=== PATIENT | male | born 1985 | race Caucasian/White ===

== ENCOUNTER 2017-04-11 17:04 | Observation (INO) | payer OTHER, MEDICAID ==
[~2017-04-11] VITALS: Ht 170.2 cm; Wt 58.4 kg
[~2017-04-11 17:04] MED LIST: NOVOINJ SQ; NOVOLOGSS
[2017-04-11 17:13] VITALS: BP 107/69; PULSE 107; RESP 20; TEMP 98; O2SAT 97
[2017-04-11] MEDS ORDERED: SODIUM CHLOR 0.9% 1000 ML INJ 1,000 ML IV SCH ×2 (17:37→18:44)
[2017-04-11] MEDS ORDERED: SODIUM CHLORIDE 0.9% FLUSH 10 ML FLUSH IV FLUSH PRN ×2 (17:45→21:45)
[2017-04-11 18:24] LABS: BILIRUBIN, URINE NEG (NEG); BLOOD, URINE NEG (NEG); GLUCOSE,URINE 1000 OR GREATER mg/dL (NEG); KETONE, URINE 15 mg/dL (NEG); NITRITE,URINE NEG (NEG); URINE LEUKOCYTE ESTERASE NEG (NEG)
[2017-04-11 18:25] VITALS: BP 125/79; PULSE 106; RESP 20; O2SAT 97
[2017-04-11 18:32] LABS: URINE COLOR YELLOW (YELLW/STRAW)
[2017-04-11 18:33] LABS: CHLORIDE 95 MEQ/L (98-107); SODIUM (NA) 133 MEQ/L (136-145)
[2017-04-11 18:33] LABS: SQUAMOUS EPITHELIAL CELL URINE 0-5 /hpf (0-5)
[2017-04-11 18:36] LABS: CALCIUM 8.9 MG/DL (8.5-10.1)
[2017-04-11 18:37] LABS: ALBUMIN 2.9 GM/DL (3.4-5.0); BICARBONATE 29.8 MEQ/L (21.0-32.0)
[2017-04-11 18:42] LABS: ALT (GPT) 381 U/L (12-78); AST (GOT) 183 U/L (15-37); BLOOD UREA NITROGEN 25 MG/DL (7-18); CREATININE 0.99 MG/DL (0.60-1.30); GLOMERULAR FILTRATION RATE 87 ML/MIN (>89); GLUCOSE,RANDOM 441 MG/DL (74-106); TOTAL BILIRUBIN ADULT 0.2 MG/DL (0.2-1.0); TOTAL PROTEIN 5.9 GM/DL (6.4-8.2)
[2017-04-11 18:43] LABS: HEMATOCRIT 37.7 % (39.0-51.0); MEAN CELL VOLUME 93.6 FL (80.0-100.0); MEAN CORPUSCULAR HEMOGLOBIN 32.2 PG (27.0-34.0); MEAN CORPUSCULAR HGB CONC 34.4 % (32.0-36.0); MEAN PLATELET VOLUME 8.6 FL (7.0-11.0); PLATELET COUNT 262 TH/MM3 (150-450); RED BLOOD COUNT 4.03 MIL/MM3 (4.50-5.90); RED CELL DISTRIBUTION WIDTH 13.9 % (11.6-17.2); WHITE BLOOD COUNT 5.9 TH/MM3 (4.0-11.0)
[2017-04-11] MEDS ORDERED: INSU100V3 SQ (18:44)
[2017-04-11] MEDS ORDERED: HUMALOG SQ (18:44)
[2017-04-11 18:45] LABS: ALKALINE PHOSPHATASE 188 U/L (45-117)
[2017-04-11] MEDS ORDERED: IOHEXOL 350 MG/ML 10 ML VIAL (for RAD DIAG) IVCONTRAST ONE (18:57)
--- NOTE | 2017-04-11 19:06 | RADRPT ---
EXAM DATE/TIME: 04/11/2017 18:51 [place] COMPARISON: No previous studies available for comparison. INDICATIONS : Upper abdominal pain radiating to right lower quadrant and constipation x 5 days. IV CONTRAST: 85 cc Omnipaque 350 (iohexol) IV ORAL CONTRAST: No oral contrast ingested. RADIATION DOSE: 5.0 CTDIvol (mGy) MEDICAL HISTORY : Diabetes mellitus type 2. Lymphoma. SURGICAL HISTORY : None. ENCOUNTER: Initial ACUITY: 4 - 6 days PAIN SCALE: 8/10 LOCATION: Bilateral upper quadrant TECHNIQUE: Volumetric scanning of the abdomen and pelvis was performed. Using automated exposure control and ad justment of the mA and/or kV according to patient size, radiation dose was kept as low as reasonably achievable to obtain optimal diagnostic quality images. DICOM format image data is available electro nically for review and comparison. FINDINGS: LOWER LUNGS: The visualized lower lungs are clear. LIVER: Homogeneous density without lesion. There is some mild periportal edema. There is no dilation of the biliary tree. No calcified gallstones. SPLEEN: Normal size without lesion. PANCREAS: Within normal limits. KIDNEYS: Normal in size and shape. There is no mass, stone or hydronephrosis. ADRENAL GLANDS: Within normal limits. VASCULAR: There is no aortic aneurysm. BOWEL/MESENTERY: The stomach, small bowel, and colon demonstrate no acute abnormality. There is no free intraperitone al air or fluid. Moderate constipation present. ABDOMINAL WALL: Within normal limits. RETROPERITONEUM: There is no lymphadenopathy. BLADDER: No wall thickening or mass. REPRODUCTIVE: Within normal limits. INGUINAL: There is no lymphadenopathy or hernia. MUSCULOSKELETAL: Within normal limits for patient age. CONCLUSION: Moderate constipation. Mild periportal edema, nonspecific. Tulio Benítez MD on April 11, 2017 at 19:02 Board Certified Radiologist. This report was verified electronically.
[2017-04-11 19:22] LABS: LYMPHOCYTES 49 % (9-44); MONOCYTES 8 % (0-8); NEUTROPHIL # MANUAL DIFF 2.4 TH/MM3 (1.8-7.7); POLYS (SEG NEUTROPHILS) 41 % (16-70)
--- NOTE | 2017-04-11 19:29 | PD ---
HPI Chief Complaint: GI Complaint Time Seen by Provider: 17:28 Travel History International Travel<30 days: No Contact w/Intl Traveler<30days: No Traveled to known affect area: No History of Present Illness HPI This is a 32-year-old male with a history of insulin-dependent diabetes who presents for abdominal pain. He states that over the last week, he has been constipated. He usually has a bowel movement every day. He states that he has been using stool softeners and is having small but not firm bowel movements. He complains of crampy abdominal pain and associated distention. No nausea, vomiting. He has had normal oral intake and appetite. No fever, chills. Normal flatus. He states that his glucoses been slightly higher than usual. No urinary urgency, frequency, dysuria, hematuria. No cough or congestion. Symptoms are mild in severity. Onset gradual. No known alleviating or aggravating factors. Patient denies narcotic use or antihistamine use that may be contributing to constipation. PFSH Past Medical History Anxiety: Yes Cancer: Yes (LYMPHOMA) Cardiomyopathy: Yes ("from meds" per pt) Chemotherapy: Yes Diabetes: Yes Patient Takes Glucophage: No Radiation Therapy: Yes Influenza Vaccination: No Past Surgical History Other Surgery: Yes (INTERNAL CATH, CHEST AND TESTICLE BOPSY) Social History Alcohol Use: Yes (occ) Tobacco Use: Yes (1ppd) Substance Use: Yes (snorted cocaine few months ago. Denies IVDA) Allergies-Medications (Allergen,Severity, Reaction): Coded Allergies: No Known Allergies (Unverified Adverse Reaction, Unknown, 04/11/17) Reported Meds & Prescriptions Reported Meds & Active Scripts Active Reported Humalog Inj (Insulin Human Lispro) 1,000 Unit/10 Ml Vial 15 Units SQ ACHS Max dose at bedtime:( )units; sugars < 70,(0)units; sugars 150-199,(5)units; sugars 200-249,(10)units; sugars 250-299,(15)units; sugars 300-349,(20)units; sugars more than 349,(25)units. Humulin N Inj (Insulin Human NPH) 1,000 Unit/10 Ml Vial 15 Units SQ BID Review of Systems Except as stated in HPI: all other systems reviewed are Neg Physical Exam Narrative GENERAL: Alert, well nourished, well appearing patient resting on the bed in no acute distress. Vital Signs reviewed SKIN: Focused skin assessment warm/dry. HEAD: Atraumatic. Normocephalic. EYES: Pupils equal and round. No scleral icterus. No injection or drainage. ENT: No nasal bleeding or discharge. Mucous membranes pink and moist. NECK: Trachea midline. No JVD. Spontaneous, painless full range of motion with no meningismus CARDIOVASCULAR: Regular rate and rhythm. No murmur appreciated. Extremities warm and well perfused with bounding peripheral pulses RESPIRATORY: No accessory muscle use. Clear to auscultation. Breath sounds equal bilaterally. Breathing easily and speaking in full sentences GASTROINTESTINAL: Abdomen soft, mild diffusely tender, nondistended. Normal bowel sounds. No rigid, rebound, guarding MUSCULOSKELETAL: No obvious deformities. No clubbing. No cyanosis. No edema. Compartments are soft NEUROLOGICAL: Awake and alert. No obvious cranial nerve deficits. Motor grossly within normal limits. Normal speech. Sensation intact. Normal gait Data Data Last Documented VS Vital Signs Date Time Temp Pulse Resp B/P (MAP) Pulse Ox O2 Delivery O2 Flow Rate FiO2 04/11/17 18:39 Room Air 04/11/17 18:25 106 20 125/79 (94) 97 04/11/17 17:13 98.0 Orders Orders Complete Blood Count With Diff (04/11/17 17:37) Comprehensive Metabolic Panel (04/11/17 17:37) Lipase (04/11/17 17:37) Lactic Acid (04/11/17 17:37) Urinalysis - C+S If Indicated (04/11/17 17:37) Ct Abd/Pel W Iv Contrast(Rout) (04/11/17 17:37) Iv Access Insert/Monitor (04/11/17 17:37) Ecg Monitoring (04/11/17 17:37) Oximetry (04/11/17 17:37) NPO (04/11/17 17:37) Sodium Chlor 0.9% 1000 Ml Inj (Ns 1000 M (04/11/17 17:37) Sodium Chloride 0.9% Flush (Ns Flush) (04/11/17 17:45) Blood Culture (04/11/17 17:37) Drug Screen, Random Urine (04/11/17 17:37) Blood Gas Venous (Vbg) (04/11/17 17:37) Bedside Glucose JUAN.CSUGAR (04/11/17 17:37) Sodium Chlor 0.9% 1000 Ml Inj (Ns 1000 M (04/11/17 18:44) Iohexol 350 Inj (Omnipaque 350 Inj) (04/11/17 18:57) Labs Laboratory Tests Test 04/11/17 17:49 04/11/17 17:50 04/11/17 17:52 04/11/17 17:55 Blood Gas Puncture Site LT BRACHIAL Blood Gas Patient Temperature 98.6 Venous Blood pH 7.40 Venous Blood Partial Pressure CO2 46 mmHg Venous Blood Partial Pressure O2 53 mmHg Venous Blood HCO3 28 mmol/L Venous Blood Oxygen Saturation 85 % Venous Blood Oxygen Content 15.0 Vol % Venous Blood Base Excess 3.6 mmol/L Oxygen Delivery Device NONE Blood Gas Inspired Oxygen 21 % Urine Color YELLOW Urine Turbidity CLEAR Urine pH 6.0 Urine Specific [place] GREATER THAN 1.035 Urine Protein NEG mg/dL Urine Glucose (UA) 1000 OR GREATER mg/dL Urine Ketones 15 mg/dL Urine Occult Blood NEG Urine Nitrite NEG Urine Bilirubin NEG Urine Leukocyte Esterase NEG Urine Squamous Epithelial Cells 0-5 /hpf Microscopic Urinalysis Comment CULT NOT INDICATED Urine Opiates Screen NEG Urine Barbiturates Screen NEG Urine Amphetamines Screen NEG Urine Benzodiazepines Screen NEG Urine Cocaine Screen NEG Urine Cannabinoids Screen NEG Lactic Acid Level 5.3 mmol/L White Blood Count 5.9 TH/MM3 Red Blood Count 4.03 MIL/MM3 Hemoglobin 13.0 GM/DL Hematocrit 37.7 % Mean Corpuscular Volume 93.6 FL Mean Corpuscular Hemoglobin 32.2 PG Mean Corpuscular Hemoglobin Concent 34.4 % Red Cell Distribution Width 13.9 % Platelet Count 262 TH/MM3 Mean Platelet Volume 8.6 FL CBC Comment AUTO DIFF Blood Urea Nitrogen 25 MG/DL Creatinine 0.99 MG/DL Random Glucose 441 MG/DL Total Protein 5.9 GM/DL Albumin 2.9 GM/DL Calcium Level 8.9 MG/DL Alkaline Phosphatase 188 U/L Aspartate Amino Transf (AST/SGOT) 183 U/L Alanine Aminotransferase (ALT/SGPT) 381 U/L Total Bilirubin 0.2 MG/DL Sodium Level 133 MEQ/L Potassium Level 4.4 MEQ/L Chloride Level 95 MEQ/L Carbon Dioxide Level 29.8 MEQ/L Anion Gap 8 MEQ/L Estimat Glomerular Filtration Rate 87 ML/MIN Lipase 131 U/L MDM Medical Decision Making Medical Screen Exam Complete: Yes Emergency Medical Condition: Yes Medical Record Reviewed: Yes Interpretation(s) Laboratory Tests Test 04/11/17 17:49 04/11/17 17:50 04/11/17 17:52 04/11/17 17:55 Blood Gas Puncture Site LT BRACHIAL Blood Gas Patient Temperature 98.6 Venous Blood pH 7.40 Venous Blood Partial Pressure CO2 46 mmHg Venous Blood Partial Pressure O2 53 mmHg Venous Blood HCO3 28 mmol/L Venous Blood Oxygen Saturation 85 % Venous Blood Oxygen Content 15.0 Vol % Venous Blood Base Excess 3.6 mmol/L Oxygen Delivery Device NONE Blood Gas Inspired Oxygen 21 % Urine Color YELLOW Urine Turbidity CLEAR Urine pH 6.0 Urine Specific [place] GREATER THAN 1.035 Urine Protein NEG mg/dL Urine Glucose (UA) 1000 OR GREATER mg/dL Urine Ketones 15 mg/dL Urine Occult Blood NEG Urine Nitrite NEG Urine Bilirubin NEG Urine Leukocyte Esterase NEG Urine Squamous Epithelial Cells 0-5 /hpf Microscopic Urinalysis Comment CULT NOT INDICATED Urine Opiates Screen NEG Urine Barbiturates Screen NEG Urine Amphetamines Screen NEG Urine Benzodiazepines Screen NEG Urine Cocaine Screen NEG Urine Cannabinoids Screen NEG Lactic Acid Level 5.3 mmol/L White Blood Count 5.9 TH/MM3 Red Blood Count 4.03 MIL/MM3 Hemoglobin 13.0 GM/DL Hematocrit 37.7 % Mean Corpuscular Volume 93.6 FL Mean Corpuscular Hemoglobin 32.2 PG Mean Corpuscular Hemoglobin Concent 34.4 % Red Cell Distribution Width 13.9 % Platelet Count 262 TH/MM3 Mean Platelet Volume 8.6 FL CBC Comment AUTO DIFF Differential Total Cells Counted 100 Neutrophils % (Manual) 41 % Lymphocytes % 49 % Monocytes % 8 % Eosinophils % 2 % Neutrophils # (Manual) 2.4 TH/MM3 Differential Comment FINAL DIFF MANUAL Atypical Lymphocytes % Platelet Estimate NORMAL Platelet Morphology Comment NORMAL Red Cell Morphology Comment NORMAL Blood Urea Nitrogen 25 MG/DL Creatinine 0.99 MG/DL Random Glucose 441 MG/DL Total Protein 5.9 GM/DL Albumin 2.9 GM/DL Calcium Level 8.9 MG/DL Alkaline Phosphatase 188 U/L Aspartate Amino Transf (AST/SGOT) 183 U/L Alanine Aminotransferase (ALT/SGPT) 381 U/L Total Bilirubin 0.2 MG/DL Sodium Level 133 MEQ/L Potassium Level 4.4 MEQ/L Chloride Level 95 MEQ/L Carbon Dioxide Level 29.8 MEQ/L Anion Gap 8 MEQ/L Estimat Glomerular Filtration Rate 87 ML/MIN Lipase 131 U/L Last 24 hours Impressions Abdomen/Pelvis CT 04/11/17 [id number] Signed Impressions: Service Date/Time: March 18:51 - CONCLUSION: Moderate constipation. Mild periportal edema, nonspecific. Tulio Benítez MD Differential Diagnosis Constipation, dehydration, DKA, bowel obstruction less likely, gastroparesis, ileus, electrolyte abnormality Narrative Course IV access was established. Labs, imaging were performed. Patient's workup reveals mildly elevated LFTs, elevated lactate. His CT is remarkable for moderate constipation. Patient's glucose is elevated but he does not have acidosis on the VBG or elevated anion gap. Patient was given 2 L normal saline bolus and a dose of insulin. As of 7:20 PM: Patient's workup is still in progress. Care has been signed out to Dr. Walker. Further evaluation, care and disposition decisions will be per Dr. Walker. Giuliana Soto MD Apr 11, 2017 19:29
[2017-04-11] MEDS ORDERED: INSULIN HUMAN REGULAR 1,000 UNITS/10 ML VIAL SQ ONE (19:30)
[2017-04-11 20:03] VITALS: BP 118/77; PULSE 82; RESP 16; TEMP 97.6; O2SAT 96
--- NOTE | 2017-04-11 20:36 | PD ---
Physical Exam Date Seen by Provider: Apr 11, 2017 Time Seen by Provider: 20:35 Narrative accepted in transfer of care from Dr Soto GENERAL: Well-developed well-nourished male in no acute distress no respiratory distress SKIN: Warm and dry. GASTROINTESTINAL: Abdomen soft, mild reproducible epigastric tenderness to direct palpation without guarding or rebound, nondistended. Data Data Last Documented VS Vital Signs Date Time Temp Pulse Resp B/P (MAP) Pulse Ox O2 Delivery O2 Flow Rate FiO2 04/11/17 20:03 97.6 82 16 118/77 (91) 96 Room Air Orders Orders Complete Blood Count With Diff (04/11/17 17:37) Comprehensive Metabolic Panel (04/11/17 17:37) Lipase (04/11/17 17:37) Lactic Acid (04/11/17 17:37) Urinalysis - C+S If Indicated (04/11/17 17:37) Ct Abd/Pel W Iv Contrast(Rout) (04/11/17 17:37) Iv Access Insert/Monitor (04/11/17 17:37) Ecg Monitoring (04/11/17 17:37) Oximetry (04/11/17 17:37) NPO (04/11/17 17:37) Sodium Chlor 0.9% 1000 Ml Inj (Ns 1000 M (04/11/17 17:37) Sodium Chloride 0.9% Flush (Ns Flush) (04/11/17 17:45) Blood Culture (04/11/17 17:37) Drug Screen, Random Urine (04/11/17 17:37) Blood Gas Venous (Vbg) (04/11/17 17:37) Bedside Glucose JUAN.CSUGAR (04/11/17 17:37) Sodium Chlor 0.9% 1000 Ml Inj (Ns 1000 M (04/11/17 18:44) Iohexol 350 Inj (Omnipaque 350 Inj) (04/11/17 18:57) Insulin Human Regular Inj (Novolin R Inj (04/11/17 19:30) Lactic Acid (04/11/17 20:11) Blood Glucose (04/11/17 20:35) Labs Laboratory Tests Test 04/11/17 17:49 04/11/17 17:50 04/11/17 17:52 04/11/17 17:55 Blood Gas Puncture Site LT BRACHIAL Blood Gas Patient Temperature 98.6 Venous Blood pH 7.40 Venous Blood Partial Pressure CO2 46 mmHg Venous Blood Partial Pressure O2 53 mmHg Venous Blood HCO3 28 mmol/L Venous Blood Oxygen Saturation 85 % Venous Blood Oxygen Content 15.0 Vol % Venous Blood Base Excess 3.6 mmol/L Oxygen Delivery Device NONE Blood Gas Inspired Oxygen 21 % Urine Color YELLOW Urine Turbidity CLEAR Urine pH 6.0 Urine Specific [place] GREATER THAN 1.035 Urine Protein NEG mg/dL Urine Glucose (UA) 1000 OR GREATER mg/dL Urine Ketones 15 mg/dL Urine Occult Blood NEG Urine Nitrite NEG Urine Bilirubin NEG Urine Leukocyte Esterase NEG Urine Squamous Epithelial Cells 0-5 /hpf Microscopic Urinalysis Comment CULT NOT INDICATED Urine Opiates Screen NEG Urine Barbiturates Screen NEG Urine Amphetamines Screen NEG Urine Benzodiazepines Screen NEG Urine Cocaine Screen NEG Urine Cannabinoids Screen NEG Lactic Acid Level 5.3 mmol/L White Blood Count 5.9 TH/MM3 Red Blood Count 4.03 MIL/MM3 Hemoglobin 13.0 GM/DL Hematocrit 37.7 % Mean Corpuscular Volume 93.6 FL Mean Corpuscular Hemoglobin 32.2 PG Mean Corpuscular Hemoglobin Concent 34.4 % Red Cell Distribution Width 13.9 % Platelet Count 262 TH/MM3 Mean Platelet Volume 8.6 FL CBC Comment AUTO DIFF Differential Total Cells Counted 100 Neutrophils % (Manual) 41 % Lymphocytes % 49 % Monocytes % 8 % Eosinophils % 2 % Neutrophils # (Manual) 2.4 TH/MM3 Differential Comment FINAL DIFF MANUAL Atypical Lymphocytes % Platelet Estimate NORMAL Platelet Morphology Comment NORMAL Red Cell Morphology Comment NORMAL Blood Urea Nitrogen 25 MG/DL Creatinine 0.99 MG/DL Random Glucose 441 MG/DL Total Protein 5.9 GM/DL Albumin 2.9 GM/DL Calcium Level 8.9 MG/DL Alkaline Phosphatase 188 U/L Aspartate Amino Transf (AST/SGOT) 183 U/L Alanine Aminotransferase (ALT/SGPT) 381 U/L Total Bilirubin 0.2 MG/DL Sodium Level 133 MEQ/L Potassium Level 4.4 MEQ/L Chloride Level 95 MEQ/L Carbon Dioxide Level 29.8 MEQ/L Anion Gap 8 MEQ/L Estimat Glomerular Filtration Rate 87 ML/MIN Lipase 131 U/L Test 04/11/17 20:18 MDM Medical Record Reviewed: Yes Supervised Visit with MARIELA: No Differential Diagnosis accepted in transfer of care from Dr Soto; please refer to her dictation Narrative Course accepted in transfer of care from Dr Soto; follow up pending labs; response to meds and disposition At 8:50 PM post insulin glucose 259 Aide Walker MD Apr 11, 2017 20:36
[2017-04-11] MEDS ORDERED: NALOXONE HCL 0.4 MG/ML AMP IV PUSH PRN (21:45)
[2017-04-11] MEDS ORDERED: DEXTROSE 50% IN WATER 50 ML VIAL(D50) IV PUSH PRN (21:45)
[2017-04-11] MEDS ORDERED: GLUCAGON 1 MG/ML VIAL OTHER PRN (21:45)
[2017-04-11] MEDS ORDERED: SODIUM CHLOR 0.9% 1000 ML INJ 1,000 ML IV ONE (21:45)
[2017-04-11] MEDS ORDERED: ONDANSETRON HCL 4 MG/2 ML VIAL IVP PRN (21:45)
[2017-04-11 23:45] VITALS: BP 104/69; PULSE 82; RESP 20; TEMP 97.9; O2SAT 94
[2017-04-12] MEDS: SODIUM CHLOR 0.9% 1000 ML INJ 1,000 ML IV SCH ×2 (00:06→07:40)
[2017-04-12 01:30] VITALS: PULSE 83
[2017-04-12 04:00] VITALS: BP 108/74; PULSE 83; RESP 20; TEMP 97.8; O2SAT 97
[2017-04-12 06:32] LABS: AUTOMATED NEUTROPHIL # 5.2 TH/MM3 (1.8-7.7); BASOPHIL # 0.1 TH/MM3 (0-0.2); BASOPHIL % 0.7 % (0.0-2.0); EOSINOPHIL # 0.2 TH/MM3 (0-0.4); EOSINOPHIL % 2.5 % (0.0-4.0); HEMATOCRIT 38.6 % (39.0-51.0); HEMOGLOBIN 12.6 GM/DL (13.0-17.0); LYMPH % 26.8 % (9.0-44.0); LYMPHOCYTE # 2.2 TH/MM3 (1.0-4.8); MEAN CELL VOLUME 94.7 FL (80.0-100.0); MEAN CORPUSCULAR HGB CONC 32.7 % (32.0-36.0); MEAN PLATELET VOLUME 8.5 FL (7.0-11.0); MONOCYTE # 0.6 TH/MM3 (0-0.9); PLATELET COUNT 226 TH/MM3 (150-450); RED BLOOD COUNT 4.07 MIL/MM3 (4.50-5.90); RED CELL DISTRIBUTION WIDTH 13.1 % (11.6-17.2); WHITE BLOOD COUNT 8.3 TH/MM3 (4.0-11.0)
[2017-04-12 07:05] LABS: BICARBONATE 26.6 MEQ/L (21.0-32.0); CREATININE 0.57 MG/DL (0.60-1.30)
[2017-04-12 08:00] VITALS: BP 116/87; PULSE 73; PULSE 80; RESP 16; TEMP 96.4; O2SAT 97
[2017-04-12] MEDS: INSULIN ASPART SUPPLEMENTAL SCALE SQ SCH ×2 (08:00→12:00)
[2017-04-12] MEDS ORDERED: SODIUM CHLORIDE 0.9% FLUSH 10 ML FLUSH IV FLUSH SCH (09:00)
[2017-04-12] MEDS ORDERED: INSULIN HUMAN NPH 1,000 UNITS/10 ML VIAL SQ SCH (10:30)
[2017-04-12] MEDS ORDERED: LACTULOSE SYRUP 20 GM/30 ML CUP PO ONE (11:15)
[2017-04-12] MEDS ORDERED: BISACODYL EC 5 MG TABEC PO ONE (11:15)
[2017-04-12 12:00] VITALS: BP 105/75; PULSE 88; RESP 14; TEMP 96.6; O2SAT 98
[2017-04-12] MEDS ORDERED: INSULIN ASPART 1,000 UNITS/10 ML VIAL SQ SCH (12:00)
[2017-04-12] MEDS ORDERED: INSU100V3 SQ (12:36)
[2017-04-12] MEDS ORDERED: HUMALOG SQ (12:37)
[2017-04-12] MEDS ORDERED: GLUCTES12 (12:37)
[2017-04-12] MEDS ORDERED: COLA100C5 PO (12:37)
[2017-04-12] MEDS ORDERED: INSU1MIS15 (12:37)
[2017-04-12] MEDS ORDERED: LANCETS1 MI1 (12:37)
--- NOTE | 2017-04-12 12:37 | HHI.DCPOC ---
Discharge Care Plan Diagnosis: (1) DM type 1 (diabetes mellitus, type 1) Goals to Promote Your Health * To prevent worsening of your condition and complications * To maintain your health at the optimal level Directions to Meet Your Goals Take your medications as prescribed Follow your dietary instruction Follow activity as directed Keep your appointments as scheduled Take your immunizations and boosters as scheduled If your symptoms worsen call your PCP, if no PCP go to Urgent Care Center or Emergency Room Smoking is Dangerous to Your Health. Avoid second hand smoke Call the 24-hour hour crisis hotline for domestic abuse at Fatuma Nielsen MD Apr 12, 2017 12:37
--- NOTE | 2017-04-12 12:42 | HHI.HP ---
[facility] Service [facility] Primary Care Physician [facility] Admission Diagnosis poorly controlled DM; abdominal pain; elevated lactate Diagnoses: Chief Complaint: Constipation Travel History International Travel<30 Days: No Contact w/Intl Traveler <30 Da: No Traveled to Known Affected Are: No History of Present Illness This patient is a 32-year-old gentleman with type 1 diabetes for the last 5 years. He has had difficulty controlling them due to poor adherence. He says he is very busy and ran out of his medications and did not follow-up as he was prescribed. He ran out of the syringes also. He comes to the emergency room complaining of increased abdominal discomfort and constipation. Images were done which did show constipation. Patient also had elevated lactic acid which probably is related to his uncontrolled blood sugar. His blood sugars are in the 400s. Patient also had an elevated beta hydroxy. Patient was monitored overnight with IV hydration and bowel regimen. He is advised to discontinue synthetic sugars and to improve his dietary and medication follow-up. He expressed understanding. Review of Systems Constitutional: DENIES: Diaphoretic episodes, Fatigue, Fever, Weight gain, Weight loss, Chills, Dizziness, Change in appetite, Night Sweats Endocrine: DENIES: Heat/cold intolerance, Polydipsia, Polyuria, Polyphagia Eyes: DENIES: Blurred vision, Diplopia, Eye inflammation, Eye pain, Vision loss , Photosensitivity, Double Vision Ears, nose, mouth, throat: DENIES: Tinnitus, Hearing loss, Vertigo, Nasal discharge, Oral lesions, Throat pain, Hoarseness, Ear Pain, Running Nose, Epistaxis, Sinus Pain, Toothache, Odynophagia Respiratory: DENIES: Apneas, Cough, Snoring, Wheezing, Hemoptysis, Sputum production, Shortness of breath Cardiovascular: DENIES: Chest pain, Palpitations, Syncope, Dyspnea on Exertion , PND, Lower Extremity Edema, Orthopnea, Claudication Gastrointestinal: COMPLAINS OF: Constipation, DENIES: Abdominal pain, Black stools, Bloody stools, Diarrhea, Nausea, Vomiting, Difficulty Swallowing, Anorexia Genitourinary: DENIES: Sexual dysfunction, Urinary frequency, Urinary incontinence, Urgency, Hematuria, Dysuria, Nocturia, Penile Discharge, Testicular Pain, Testicular Swelling Integumentary: DENIES: Abnormal pigmentation, Nail changes, Pruritus, Rash Hematologic/lymphatic: DENIES: Bruising, Lymphadenopathy Immunologic/allergic: DENIES: Eczema, Urticaria Neurologic: DENIES: Abnormal gait, Headache, Localized weakness, Paresthesias, Seizures, Speech Problems, Tremor, Poor Balance Psychiatric: DENIES: Anxiety, Confusion, Mood changes, Depression, Hallucinations, Agitation, Suicidal Ideation, Homicidal Ideation, Delusions Past Family Social History Past Medical History Diabetes mellitus type 1 for 5 years History of lymphoma History of Adriamycin related cardiomyopathy Past Surgical History Testicular biopsy, Reported Medications Reviewed in the EMR, ran out of insulin and syringes Allergies: Coded Allergies: No Known Allergies (Unverified Allergy, Unknown, 04/11/17) Active Ordered Medications reviewed in the EMR Family History his aunt has diabetes Social History Occasional alcohol, goes to school and works full-time Physical Exam Vital Signs Vital Signs Date Time Temp Pulse Resp B/P (MAP) Pulse Ox O2 Delivery O2 Flow Rate FiO2 04/12/17 08:00 80 04/12/17 08:00 96.4 73 16 116/87 (97) 97 04/12/17 04:00 97.8 83 20 108/74 (85) 97 04/12/17 01:30 83 04/11/17 23:45 97.9 82 20 104/69 (81) 94 04/11/17 23:43 04/11/17 20:03 97.6 82 16 118/77 (91) 96 Room Air 04/11/17 18:39 Room Air 04/11/17 18:25 106 20 125/79 (94) 97 Room Air 04/11/17 17:13 98.0 107 20 107/69 (82) 97 Physical Exam GENERAL: This is a well-nourished, well-developed patient, in no apparent distress. SKIN: No rashes, ecchymoses or lesions. Cool and dry. HEAD: Atraumatic. Normocephalic. No temporal or scalp tenderness. EYES: Pupils equal round and reactive. Extraocular motions intact. No scleral icterus. No injection or drainage. ENT: Nose without bleeding, purulent drainage or septal hematoma. Throat without erythema, tonsillar hypertrophy or exudate. Uvula midline. Airway patent. NECK: Trachea midline. No JVD or lymphadenopathy. Supple, nontender, no meningeal signs. CARDIOVASCULAR: Regular rate and rhythm without murmurs, gallops, or rubs. RESPIRATORY: Clear to auscultation. Breath sounds equal bilaterally. No wheezes , rales, or rhonchi. GASTROINTESTINAL: Abdomen soft, non-tender, nondistended. No hepato-splenomegaly , or palpable masses. No guarding. MUSCULOSKELETAL: Extremities without clubbing, cyanosis, or edema. No joint tenderness, effusion, or edema noted. No calf tenderness. Negative Homans sign bilaterally. NEUROLOGICAL: Awake and alert. Cranial nerves II through XII intact. Motor and sensory grossly within normal limits. Five out of 5 muscle strength in all muscle groups. Normal speech. Laboratory Laboratory Tests Test 04/11/17 17:49 04/11/17 17:50 04/11/17 17:52 04/11/17 17:55 Blood Gas Puncture Site LT BRACHIAL Blood Gas Patient Temperature 98.6 Venous Blood pH 7.40 Venous Blood Partial Pressure CO2 46 Venous Blood Partial Pressure O2 53 Venous Blood HCO3 28 Venous Blood Oxygen Saturation 85 Venous Blood Oxygen Content 15.0 Venous Blood Base Excess 3.6 Oxygen Delivery Device NONE Blood Gas Inspired Oxygen 21 Urine Color YELLOW Urine Turbidity CLEAR Urine pH 6.0 Urine Specific [place] GREATER THAN 1.035 Urine Protein NEG Urine Glucose (UA) 1000 OR GREATER Urine Ketones 15 Urine Occult Blood NEG Urine Nitrite NEG Urine Bilirubin NEG Urine Leukocyte Esterase NEG Urine Squamous Epithelial Cells 0-5 Microscopic Urinalysis Comment CULT NOT INDICATED Urine Opiates Screen NEG Urine Barbiturates Screen NEG Urine Amphetamines Screen NEG Urine Benzodiazepines Screen NEG Urine Cocaine Screen NEG Urine Cannabinoids Screen NEG Lactic Acid Level 5.3 White Blood Count 5.9 Red Blood Count 4.03 Hemoglobin 13.0 Hematocrit 37.7 Mean Corpuscular Volume 93.6 Mean Corpuscular Hemoglobin 32.2 Mean Corpuscular Hemoglobin Concent 34.4 Red Cell Distribution Width 13.9 Platelet Count 262 Mean Platelet Volume 8.6 CBC Comment AUTO DIFF Differential Total Cells Counted 100 Neutrophils % (Manual) 41 Lymphocytes % 49 Monocytes % 8 Eosinophils % 2 Neutrophils # (Manual) 2.4 Differential Comment FINAL DIFF MANUAL Atypical Lymphocytes Platelet Estimate NORMAL Platelet Morphology Comment NORMAL Red Cell Morphology Comment NORMAL Blood Urea Nitrogen 25 Creatinine 0.99 Random Glucose 441 Total Protein 5.9 Albumin 2.9 Calcium Level 8.9 Alkaline Phosphatase 188 Aspartate Amino Transf (AST/SGOT) 183 Alanine Aminotransferase (ALT/SGPT) 381 Total Bilirubin 0.2 Sodium Level 133 Potassium Level 4.4 Chloride Level 95 Carbon Dioxide Level 29.8 Anion Gap 8 Estimat Glomerular Filtration Rate 87 Lipase 131 Test 04/11/17 20:18 04/12/17 05:30 04/12/17 08:15 Lactic Acid Level 4.9 1.7 White Blood Count 8.3 Red Blood Count 4.07 Hemoglobin 12.6 Hematocrit 38.6 Mean Corpuscular Volume 94.7 Mean Corpuscular Hemoglobin 31.0 Mean Corpuscular Hemoglobin Concent 32.7 Red Cell Distribution Width 13.1 Platelet Count 226 Mean Platelet Volume 8.5 Neutrophils (%) (Auto) 63.0 Lymphocytes (%) (Auto) 26.8 Monocytes (%) (Auto) 7.0 Eosinophils (%) (Auto) 2.5 Basophils (%) (Auto) 0.7 Neutrophils # (Auto) 5.2 Lymphocytes # (Auto) 2.2 Monocytes # (Auto) 0.6 Eosinophils # (Auto) 0.2 Basophils # (Auto) 0.1 CBC Comment DIFF FINAL Differential Comment Blood Urea Nitrogen 18 Creatinine 0.57 Random Glucose 429 Calcium Level 8.0 Sodium Level 135 Potassium Level 4.7 Chloride Level 102 Carbon Dioxide Level 26.6 Anion Gap 6 Estimat Glomerular Filtration Rate 164 B-Hydroxybutyrate 1.60 Date/Time Source Procedure Growth Status 04/11/17 17:55 Blood Peripheral Aerobic Blood Culture - Preliminary NO GROWTH IN 1 DAY Resulted 04/11/17 17:55 Blood Peripheral Anaerobic Blood Culture - Preliminary NO GROWTH IN 1 DAY Resulted Result Diagram: 04/12/17 0530 04/12/17 0530 Imaging Last Impressions Abdomen/Pelvis CT 04/11/17 3597 Signed Impressions: Service Date/Time: March 18:51 - CONCLUSION: Moderate constipation. Mild periportal edema, nonspecific. Tulio Benítez MD Septic Shock Reassessment Septic shock perfusion: reassessment completed Caprini VTE Risk Assessment Caprini VTE Risk Assessment: No/Low Risk (score <= 1) Caprini Risk Assessment Model Point Value = 1 Point Value = 2 Point Value = 3 Point Value = 5 Age 41-60 Minor surgery BMI > 25 kg/m2 Swollen legs Varicose veins or History of unexplained or recurrent spontaneous Oral contraceptives or hormone replacement Sepsis (< 1 month) Serious lung disease, including pneumonia (< 1 month) Abnormal pulmonary function Acute myocardial infarction Congestive heart failure (< 1 month) History of inflammatory bowel disease Medical patient at bed rest Age 61-74 Arthroscopic surgery Major open surgery (> 45 min) Laparoscopic surgery (> 45 min) Malignancy Confined to bed (> 72 hours) Immobilizing plaster cast Central venous access Age >= 75 History of VTE Family history of VTE Factor V Leiden Prothrombin [id number] Lupus anticoagulant Anticardiolipin antibodies Elevated serum homocysteine Heparin-induced thrombocytopenia Other congenital or acquired thrombophilia Stroke (< 1 month) Elective arthroplasty Hip, pelvis, or leg fracture Acute spinal cord injury (< 1 month) Prophylaxis Regimen Total Risk Factor Score Risk Level Prophylaxis Regimen 0-1 Low Early ambulation 2 Moderate Order ONE of the following: *Sequential Compression Device (SCD) *Heparin 5000 units SQ BID 3-4 Higher Order ONE of the following medications: *Heparin 5000 units SQ TID *Enoxaparin/Lovenox 40 mg SQ daily (WT < 150 kg, CrCl > 30 mL/min) *Enoxaparin/Lovenox 30 mg SQ daily (WT < 150 kg, CrCl > 10-29 mL/min) *Enoxaparin/Lovenox 30 mg SQ BID (WT < 150 kg, CrCl > 30 mL/min) AND/OR *Sequential Compression Device (SCD) 5 or more Highest Order ONE of the following medications: *Heparin 5000 units SQ TID (Preferred with Epidurals) *Enoxaparin/Lovenox 40 mg SQ daily (WT < 150 kg, CrCl > 30 mL/min) *Enoxaparin/Lovenox 30 mg SQ daily (WT < 150 kg, CrCl > 10-29 mL/min) *Enoxaparin/Lovenox 30 mg SQ BID (WT < 150 kg, CrCl > 30 mL/min) AND *Sequential Compression Device (SCD) Assessment and Plan Problem List: (1) DM type 1 (diabetes mellitus, type 1) ICD Code: E10.9 - Type 1 diabetes mellitus without complications Plan: His diabetes uncontrolled to report adherence. Patient went out of his medications and had not been taking care of himself as he should. Patient's sugars improved somewhat. Patient education provided by medical attending at bedside. Occasions are refilled. Patient will be discharged home (2) Constipation ICD Code: K59.00 - Constipation, unspecified Plan: Fluid intake encouraged, patient to take Colace as prescribed Assessment and Plan Discharge home Activity unrestricted Diet diabetic Discussed Condition With Patient Fatuma Nielsen MD Apr 12, 2017 12:42
[2017-04-12 16:56] LABS: HEMOGLOBIN A1C 12.3 % (4.3-6.0)
== END 2017-04-12 14:00 | disposition home or self-care (01) ==
LOC: PHED 17:04 → PHEDA 21:42 → PH3A 23:44
PROVIDERS: ADMIT Hospitalist; ATTEND Hospitalist
DX: E10.65 Type 1 diabetes mellitus with hyperglycemia (principal); K59.00 Constipation, unspecified; R79.89 Other specified abnormal findings of blood chemistry; I42.9 Cardiomyopathy, unspecified; T45.1X5A Adverse effect of antineoplastic and immunosuppressive drugs, initial encounter; F41.9 Anxiety disorder, unspecified; F17.200 Nicotine dependence, unspecified, uncomplicated; Z85.72 Personal history of non-Hodgkin lymphomas
CPT/HCPCS: 74177; 80048; 80053; 80307; 81001; 82010; 82805; 82948; 83036; 83605; 83690; 85007; 85025; 85027; 87040; 96360; 96361; 96372; 99285; G0378; J1815; J7030; Q9967

== ENCOUNTER 2017-09-16 08:12 | Inpatient (IN) ==
[2017-09-16] MEDS ORDERED: Sod Chloride 0.9% Inj 1,000 ML IV.SIG ONE ×2 (08:42→10:43)
[2017-09-16 09:03] LABS: VBG Base Excess -13.2 mmol/L (-2-2); VBG PCO2 30 mmHG (44-48); VBG PH 7.25 (7.360-7.400); VBG PO2 58 mmHG (35-40)
[2017-09-16 09:22] LABS: Baso # (Auto) 0.1 th/mm3 (0.0-0.2); Eos # (Auto) 0.1 th/mm3 (0.0-0.4); Eos % (Auto) 1.1 % (0.0-4.0); Hematocrit 46.4 % (39.0-51.0); Hemoglobin 15.8 gm/dL (13.0-17.0); Lymph # (Auto) 1.6 th/mm3 (1.0-4.8); Lymph % (Auto) 16.7 % (9.0-44.0); Mean Corpuscular HGB Conc 34.1 % (32.0-36.0); Mean Corpuscular Hemoglobin 33.8 pg (27.0-34.0); Mean Corpuscular Volume 99.1 fL (80.0-100.0); Mean Platelet Volume 9.2 fL (7.0-11.0); Mono # (Auto) 0.5 th/mm3 (0.0-0.9); Mono % (Auto) 5.6 % (0.0-8.0); Neut # (Auto) 7.3 th/mm3 (1.8-7.7); Neut % (Auto) 75.6 % (16.0-70.0); Platelet Count 248 th/mm3 (150-450); Red Blood Count 4.68 mil/mm3 (4.50-5.90); Red Cell Distribution Width 12.8 % (11.6-17.2); White Blood Count 9.7 th/mm3 (4.0-11.0)
[2017-09-16 09:49] LABS: Calcium 8.9 mg/dL (8.5-10.1); Carbon Dioxide 13.4 meq/L (21.0-32.0)
[2017-09-16 09:52] LABS: Potassium 4.5 meq/L (3.5-5.1)
[2017-09-16 09:59] LABS: Bilirubin,Urine Negative (Negative); Clarity,Urine Clear (Clear); Color,Urine Straw (Yellw/Straw); Glucose,Urine (UA) 500 or Greater mg/dL (Negative); Leukocyte Esterase,Urine Negative (Negative); Mucus,Urine Few /lpf (Occasional); Nitrite,Urine Negative (Negative); Specific Gravity,Urine 1.027 (1.002-1.035)
[2017-09-16] MEDS ORDERED: Insulin Regular (For Infusion) 100 UNIT in Sodium Chlor 0.9% Inj 99 ML IV.CONT PRN (11:26)
[2017-09-16] MEDS ORDERED: Dextrose 50% in Water 50 ML Vial IV.PUSH PRN (11:36)
[2017-09-16] MEDS ORDERED: Sod Chloride 0.9% Inj 1,000 ML IV.CONT SCH (11:45)
--- NOTE | 2017-09-16 13:42 | P.HPIM ---
History of Present Illness Service: [facility] Primary Care Physician: [facility] Chief Complaint: malaise, concern for DKA History of Present Illness: Mr. Fitch is a 28 yo M with PMH of T1DM and cardiomyopathy who presented to [facility] ED with symptoms of malaise. Patient felt nauseous, dizzy, having feelings of palpitations, and lethargic this morning so sought to seek care. Patient states that it felt similar to prior episodes of DKA but worse. Patient feels that he has been urinating frequently and has been more tired lately but otherwise does not know of any recent illnesses. Patient does not report recent fevers, cough, shortness of breath, or other concerns. Patient states that he takes Lantus insulin 20U in the mornings and sliding Novolog insulin (1 Unit per 15 gm carbs) with meals. Patient has not been checking his glucose levels often. He has been compliant in taking Lantus daily but misses Novolog doses. Patient states that he thinks his EF is 35-40% but has not had recent follow-up for his Cardiomyopathy with Cardiology. He reports chronic smoking, prior occasional cocaine abuse but not recently. Meds- ASA 81mg, unspecified cholesterol med, Lantus, Novolog PMH- T1DM, Cardiomyopathy (unsure etiology; exposure from vs chemo as kid for NHL) PSH- chest port from cancer SH- lives w/ cousin. about to be homeless.Tobacco- ~2ppd. Alcohol- binge on weekends. Occasional cocaine- considering rehab FH-none reported Interval: On arrival in ED, patient afebrile with stable VS. Labs on admission demonstrated glucose 354, anion gap of 20, and bicarb of 13.4. K 4.5. Na 134. UA with 80+ ketones. CBC wnl; presentation not suspcious for infectious etiology. Patient admitted for DKA and given IV insulin and IVF. Patient admitted to [facility] service for continued treatment. - Diagnosis (1) Acute dehydration (2) Cardiomyopathy (3) DKA (diabetic ketoacidoses) (4) Diabetes Inpatient Certification: I certify that the inpatient services were ordered in accordance with Medicare regulations governing the order. This includes certification that hospital inpatient services are reasonable and necessary and in the case of services not specified as inpatient-only under 42 CFR 419.22(n), that they are appropriately provided as inpatient services in accordance to with the 2-midnight benchmark under 43 CFR 412.3(e) Estimated Total Length of Stay (Days): 3 Plans for Post Hospital Care: Home Review of Systems Constitutional: Reports lack of energy, Denies chills Eyes: Denies blind spots, Denies itchy eyes Cardiovascular: Denies chest pain, Denies excessive sweating, Denies irregular heart rhythm Respiratory: Denies chest congestion, Denies cough Gastrointestinal: Denies abdominal pain, Denies bloating Musculoskeletal: Denies abnormal walking, Denies back pain Skin/Breast: Denies rash, Denies other Psychiatric: Denies anxiety, Denies panic attacks PMFSH - History History Provided By: Patient - Medical History Medical History: Medical History (Last Updated 09/16/17 @ 20:19 by Sánchez Mortensen MD) Cardiomyopathy (Acute) Diabetes (Acute) Non-Hodgkin lymphoma in remission Port-A-Cath in place Tobacco abuse - Tobacco History Second Hand Smoke Exposure: Yes Tobacco Use In Past 30 Days: Yes Smoking Status: Current every day smoker Tobacco Type: Cigarettes - Alcohol History How Often Do You Have a Drink Containing Alcohol: 4 or more times a week - Substance Use History Substance History: Active Abuse - Substance Use Type Crack/Cocaine Status: Active Route Used: Inhalation Reason for Use: Feels Good - Travel History Recent Travel in the [place] Within the Last 8 Weeks: No Recent Travel Out of the Country Within the Last 8 Weeks: No - Immunization History Tetanus Immunization: <5 Years Medications and Allergies Active Medications: Active Medications Dextrose (D50w Vial) 50 ml IV.PUSH UNSCH PRN PRN Reason: PER HYPOGLYCEMIA PROTOCOL Insulin Human Regular 100 unit (/ Sodium Chloride) 100 mls @ 6 mls/hr IV.CONT TITRATE PRN; Protocol PRN Reason: See protocol Last Admin: 09/16/17 12:43 Dose: 6 units/hr, 6 mls/hr Sodium Chloride (Ns Inj) 1,000 mls @ 200 mls/hr IV.CONT .Q5H SHANNAN Sodium Chloride (Ns Flush) 2 ml IV.FLUSH PRN PRN PRN Reason: FLUSH AFTER USING IV ACCESS Allergies Allergy/AdvReac Type Severity Reaction Status Date / Time No Known Allergies Allergy Unknown Uncoded 04/11/17 21:43 Home Medications Medication Instructions Recorded Confirmed Type insulin aspart U-100 [Novolog 1 sliding scale dose SUB-Q UD 07/23/18 07/23/18 History U-100 Insulin aspart] insulin glargine [Lantus U-100 20 unit SUB-Q DAILY 09/16/17 09/16/17 History Insulin] Exam Vital signs: Vital Signs 09/16/17 08:19 09/16/17 10:49 09/16/17 12:47 Temperature 97.8 F Pulse Rate 90 82 79 Respiratory Rate 18 17 16 Blood Pressure 103/55 L 111/64 93/63 L Pulse Oximetry 98 96 100 Intake & Output 09/15/17 09/16/17 09/16/17 18:59 06:59 18:59 Weight 56.699 kg Narrative: General: No acute distress Skin: No visible lesions Neck: No appreciated lymphadenopathy or thyromegaly HEENT: Head atraumatic. Eyes- pupils reactive, symmetrical. EOM I. Nose- no drainage. Mouth- normal mucus membranes CV- Regular rate and rhythm; no murmurs Resp: CTAB; normal rate Abd: Soft, nontender, normal BS Ext: Grossly normal ROM and motor function Neuro: Awake, alert. Normal CN. Normal peripheral motor and sensory function Results - Labs CBC & Chem 7: 09/16/17 09:00 09/16/17 14:40 Labs: Short CBC 09/16/17 Range/Units 09:00 WBC 9.7 (4.0-11.0) th/mm3 Hgb 15.8 (13.0-17.0) gm/dL Hct 46.4 (39.0-51.0) % Plt Count 248 (150-450) th/mm3 BMP 09/16/17 09:00 Sodium 134 L Potassium 4.5 Chloride 101 Carbon Dioxide 13.4 L BUN 18 Creatinine 1.23 Calcium 8.9 Urine 09/16/17 Range/Units 09:05 Urine Color Straw (Yellw/Straw) Urine Clarity Clear (Clear) Urine pH 5.0 (5.0-8.5) Ur Specific [place] 1.027 (1.002-1.035) Urine Protein Negative (Neg-Trace) mg/dL Urine Glucose (UA) 500 or greater (Negative) mg/dL Caprini VTE Risk Assessment Caprini VTE Risk Assessment: No/Low Risk (score <= 1) Caprini Risk Assessment Model: Point Value = 1 Point Value = 2 Point Value = 3 Point Value = 5 Age 41-60 Minor surgery BMI > 25 kg/m2 Swollen legs Varicose veins or History of unexplained or recurrent spontaneous Oral contraceptives or hormone replacement Sepsis (< 1 month) Serious lung disease, including pneumonia (< 1 month) Abnormal pulmonary function Acute myocardial infarction Congestive heart failure (< 1 month) History of inflammatory bowel disease Medical patient at bed rest Age 61-74 Arthroscopic surgery Major open surgery (> 45 min) Laparoscopic surgery (> 45 min) Malignancy Confined to bed (> 72 hours) Immobilizing plaster cast Central venous access Age >= 75 History of VTE Family history of VTE Factor V Leiden Prothrombin [id number] Lupus anticoagulant Anticardiolipin antibodies Elevated serum homocysteine Heparin-induced thrombocytopenia Other congenital or acquired thrombophilia Stroke (< 1 month) Elective arthroplasty Hip, pelvis, or leg fracture Acute spinal cord injury (< 1 month) Prophylaxis Regimen: Total Risk Factor Score Risk Level Prophylaxis Regimen 0-1 Low Early ambulation 2 Moderate Order ONE of the following: *Sequential Compression Device (SCD) *Heparin 5000 units SQ BID 3-4 Higher Order ONE of the following medications: *Heparin 5000 units SQ TID *Enoxaparin/Lovenox 40 mg SQ daily (WT < 150 kg, CrCl > 30 mL/min) *Enoxaparin/Lovenox 30 mg SQ daily (WT < 150 kg, CrCl > 10-29 mL/min) *Enoxaparin/Lovenox 30 mg SQ BID (WT < 150 kg, CrCl > 30 mL/min) AND/OR *Sequential Compression Device (SCD) 5 or more Highest Order ONE of the following medications: *Heparin 5000 units SQ TID (Preferred with Epidurals) *Enoxaparin/Lovenox 40 mg SQ daily (WT < 150 kg, CrCl > 30 mL/min) *Enoxaparin/Lovenox 30 mg SQ daily (WT < 150 kg, CrCl > 10-29 mL/min) *Enoxaparin/Lovenox 30 mg SQ BID (WT < 150 kg, CrCl > 30 mL/min) AND *Sequential Compression Device (SCD) Assessment and Plan - Assessment (1) Acute dehydration Code(s): E86.0 - Dehydration Status: Acute (2) Cardiomyopathy Code(s): I42.9 - Cardiomyopathy, unspecified Status: Acute (3) DKA (diabetic ketoacidoses) Code(s): E13.10 - Other specified diabetes mellitus with ketoacidosis without coma Status: Acute (4) Diabetes Code(s): E11.9 - Type 2 diabetes mellitus without complications Status: Acute - Plan Mr. Fitch is a 32 yo M with PMH DM and cardiomyopathy was admitted from [facility] ED with labs suggestive of DKA: DKA Impression: Glucose 354 on admission in association with malaise. Labs on admission with anion gap of 20, bicarbonate of 13.4, and ketones in urine. venous gas with pH 7.25 and bicarb of 13. K 4.5 EKG- sinus, left anterior fascicular block Patient given IV insulin and aggressive IV fluid supplementation in ED, at time of my evaluation patient had fingerstick glucose of 150 IV insulin was continued with plan to check BMP to assure anion gap <12 prior to initiating SQ insulin. BMP drawn -Prior to result of BMP, patient stated to nursing staff that he had to leave AMA and that he needed to go home so he would not loose his job. It was explained to patient that he could be given work excuse and that his acidosis was concerning and that he needed admission to solidify improvement in DKA symptoms. Patient refused and left AMA despite knowledge of risks of leaving Patient was given advice to return to ED quickly if worsening or if he became agreeable for treatment. After patient left, BMP resulted with anion gap 9, bicarb 21, glucose 101, K 4.1 Patient was contacted via phone this evening; he stated that he was doing ok with glucoses ~90-low 100's and that he was staying hydrated. He refuses to return to hospital currently but will come if he feels worse such as more "lethargic" Code Status: Full (3) DKA (diabetic ketoacidoses) Qualifiers: Diabetes mellitus type: type 1 Diabetes mellitus complication detail: without coma Qualified Code(s): E10.10 - Type 1 diabetes mellitus with ketoacidosis without coma
[2017-09-16] MEDS ORDERED: Bisacodyl 10 MG Supp RECTAL PRN (13:46)
[2017-09-16] MEDS ORDERED: KCL 20 mEq/D5W/NaCl 0.45% Inj 1,000 ML IV.CONT SCH (14:00)
[2017-09-16] MEDS ORDERED: Insulin NovoLOG Aspart Correctional Sugar Inj SQ SCH (14:25)
--- NOTE | 2017-09-16 14:46 | ED ---
HPI General Chief complaint: Recheck/Abnormal Lab/Rx Stated complaint: Poss Diabetic Complaint Time Seen by Provider: 09/16/17 08:24 Source: patient Mode of arrival: ambulatory Limitations: no limitations History of Present Illness HPI narrative: Patient is a 32-year-old, male past medical history significant for type 1 diabetes who presents with complaint of "I think I am in DKA." He states that today he started feeling nauseated without vomiting with malaise. He has been taking his insulin as directed. No chest pain, dyspnea, abdominal pain, headache, fever, chills. complaint: Malaise, "think I'm in DKA" Onset (ago): hour(s) Radiation: non-radiation Severity: moderate Relieving factors: none Exacerbating factors: none Associated symptoms: malaise and weakness Treatments prior to arrival: none Related Data Home Medications Medication Instructions Recorded Confirmed Unable to Obtain Home Meds 09/16/17 09/16/17 Allergies Allergy/AdvReac Type Severity Reaction Status Date / Time No Known Allergies Allergy Unknown Uncoded 04/11/17 21:43 Review of Systems Except as stated in HPI: all other systems reviewed are negative Constitutional Denies body ache(s), Denies chills, Reports fatigue, Denies fever(s) and Denies increased appetite Eyes Denies blurry vision ENT Denies nasal congestion Cardiovascular Denies chest pain and Denies diaphoresis Respiratory Denies dyspnea Gastrointestinal Denies abdominal pain, Denies diarrhea, Reports nausea and Denies vomiting Genitourinary Denies dysuria Musculoskeletal Denies back pain Integumentary/Breasts Denies rash Neurologic Denies dizziness and Denies headache(s) Psychiatric Denies confusion [facility] Social History Social History Substance History: Active Abuse Second Hand Smoke Exposure: No Smoking Status: Current every day smoker Tobacco Type: Cigarettes How Often Do You Have a Drink Containing Alcohol: 4 or more times a week Recent Travel in [facility] within the Last 8 Weeks: No Recent Out of Country Travel within the Last 8 Weeks: No Substance Abuse Detail Crack/Cocaine: Substance Use Status: Active Route Used Substance Abuse: Inhalation Reason for Use: Feels Good Immunization History Tetanus Immunization: <5 Years Exam Narrative Exam Narrative: GENERAL: Well-appearing male, no acute distress SKIN: Focused skin assessment warm/dry. HEAD: Atraumatic. Normocephalic. EYES: Pupils equal and round. No scleral icterus. No injection or drainage. ENT: No nasal bleeding or discharge. Mucous membranes pink and dry. NECK: Trachea midline. No JVD. CARDIOVASCULAR: Regular rate and rhythm. No murmur appreciated. RESPIRATORY: No accessory muscle use. Clear to auscultation. Breath sounds equal bilaterally. GASTROINTESTINAL: Abdomen soft, non-tender, nondistended. Hepatic and splenic margins not palpable. MUSCULOSKELETAL: No obvious deformities. No clubbing. No cyanosis. No edema. NEUROLOGICAL: Awake and alert. No obvious cranial nerve deficits. Motor grossly within normal limits. Normal speech. PSYCHIATRIC: Appropriate mood and affect; insight and judgment normal. Course Hospital Course: On arrival patient was placed on a court recording monitor, IV was established, and he was given fluids for rehydration Initial Documented Vital Signs Temperature 97.8 F 09/16/17 08:19 Pulse Rate 90 09/16/17 08:19 Respiratory Rate 18 09/16/17 08:19 Blood Pressure 103/55 L 09/16/17 08:19 Pulse Oximetry 98 09/16/17 08:19 Last Documented Vital Signs Temperature 97.8 F 09/16/17 08:19 Pulse Rate 79 09/16/17 12:47 Respiratory Rate 16 09/16/17 12:47 Blood Pressure 93/63 L 09/16/17 12:47 Pulse Oximetry 100 09/16/17 12:47 Medical Decision Making MDM Narrative Medical decision making narrative: Patient is a 32-year-old male, past medical history significant for type 1 diabetes, who presents with complaint of generalized malaise. He appears dehydrated on arrival was given IV fluids for rehydration. He has been hemodynamically stable while in the ED. Labs are consistent with DKA and he was started on an insulin drip with normal saline infusion until his glucose dropped below 200 at which point he was switched to D5. He was admitted to Dr. Mortensen, in the ICU for further management. Differential Diagnosis Differential Diagnosis: Differential diagnosis includes but is not limited to DKA, HHS, gastroenteritis, dehydration. Medical Records Medical records reviewed: Yes I reviewed the patient's medical records. Medical records reveal history of type 1 diabetes. Lab Data Lab results reviewed: Yes I reviewed the patient's lab results. Lab results narrative: Labs consistent with diabetic ketoacidosis. Result diagrams: 09/16/17 09:00 09/16/17 09:00 Lab Results 09/16/17 09/16/17 09/16/17 Range/Units 08:50 09:00 09:00 WBC 9.7 (4.0-11.0) th/mm3 RBC 4.68 (4.50-5.90) mil/mm3 Hgb 15.8 (13.0-17.0) gm/dL Hct 46.4 (39.0-51.0) % MCV 99.1 (80.0-100.0) fL MCH 33.8 (27.0-34.0) pg MCHC 34.1 (32.0-36.0) % RDW 12.8 (11.6-17.2) % Plt Count 248 (150-450) th/mm3 MPV 9.2 (7.0-11.0) fL Neut % (Auto) 75.6 H (16.0-70.0) % Lymph % (Auto) 16.7 (9.0-44.0) % [place] % (Auto) 5.6 (0.0-8.0) % Eos % (Auto) 1.1 (0.0-4.0) % Baso % (Auto) 1.0 (0.0-2.0) % Neut # (Auto) 7.3 (1.8-7.7) th/mm3 Lymph # (Auto) 1.6 (1.0-4.8) th/mm3 [place] # (Auto) 0.5 (0.0-0.9) th/mm3 Eos # (Auto) 0.1 (0.0-0.4) th/mm3 Baso # (Auto) 0.1 (0.0-0.2) th/mm3 WBC Differential . Differential Comment Auto diff final Puncture Site Peripheral line Patient Temperature 98.6 VBG pH 7.25 L* (7.360-7.400) VBG pCO2 30 L (44-48) mmHG VBG pO2 58 H (35-40) mmHG VBG HCO3 13 L* (22-26) mmol/L VBG O2 Saturation 82 H (70-76) % VBG O2 Content 18.0 H (9.0-17.0) Vol % VBG Base Excess -13.2 L (-2-2) mmol/L VBG Carboxyhemoglobin 3.2 (0-4) % VBG Methemoglobin 1.1 (0-2) % Hemoglobin 15.8 (12.0-16.0) G/DL Inspired O2 21 % Critical Value Yes Sodium 134 L (136-145) meq/L Potassium 4.5 (3.5-5.1) meq/L Chloride 101 (98-107) meq/L Carbon Dioxide 13.4 L (21.0-32.0) meq/L Anion Gap 20 H (5-15) meq/L BUN 18 (7-18) mg/dL Creatinine 1.23 (0.60-1.30) mg/dL Estimated GFR 67 L (>89) mL/min Random Glucose 354 H (74-106) mg/dL Calcium 8.9 (8.5-10.1) mg/dL Urine Color (Yellw/Straw) Urine Clarity (Clear) Urine pH (5.0-8.5) Ur Specific [place] (1.002-1.035) Urine Protein (Neg-Trace) mg/dL Urine Glucose (UA) (Negative) mg/dL Urine Ketones (Negative) mg/dL Urine Occult Blood (Negative) Urine Nitrate (Negative) Urine Bilirubin (Negative) Urine Urobilinogen (Less than 2) mg/dL Ur Leukocyte Esterase (Negative) Urine WBC (0-5) /hpf Urine Mucus (Occasional) /lpf Micro UA Comment Urine Culture Comments 09/16/17 Range/Units 09:05 WBC (4.0-11.0) th/mm3 RBC (4.50-5.90) mil/mm3 Hgb (13.0-17.0) gm/dL Hct (39.0-51.0) % MCV (80.0-100.0) fL MCH (27.0-34.0) pg MCHC (32.0-36.0) % RDW (11.6-17.2) % Plt Count (150-450) th/mm3 MPV (7.0-11.0) fL Neut % (Auto) (16.0-70.0) % Lymph % (Auto) (9.0-44.0) % [place] % (Auto) (0.0-8.0) % Eos % (Auto) (0.0-4.0) % Baso % (Auto) (0.0-2.0) % Neut # (Auto) (1.8-7.7) th/mm3 Lymph # (Auto) (1.0-4.8) th/mm3 [place] # (Auto) (0.0-0.9) th/mm3 Eos # (Auto) (0.0-0.4) th/mm3 Baso # (Auto) (0.0-0.2) th/mm3 WBC Differential Differential Comment Puncture Site Patient Temperature VBG pH (7.360-7.400) VBG pCO2 (44-48) mmHG VBG pO2 (35-40) mmHG VBG HCO3 (22-26) mmol/L VBG O2 Saturation (70-76) % VBG O2 Content (9.0-17.0) Vol % VBG Base Excess (-2-2) mmol/L VBG Carboxyhemoglobin (0-4) % VBG Methemoglobin (0-2) % Hemoglobin (12.0-16.0) G/DL Inspired O2 % Critical Value Sodium (136-145) meq/L Potassium (3.5-5.1) meq/L Chloride (98-107) meq/L Carbon Dioxide (21.0-32.0) meq/L Anion Gap (5-15) meq/L BUN (7-18) mg/dL Creatinine (0.60-1.30) mg/dL Estimated GFR (>89) mL/min Random Glucose (74-106) mg/dL Calcium (8.5-10.1) mg/dL Urine Color Straw (Yellw/Straw) Urine Clarity Clear (Clear) Urine pH 5.0 (5.0-8.5) Ur Specific [place] 1.027 (1.002-1.035) Urine Protein Negative (Neg-Trace) mg/dL Urine Glucose (UA) 500 or greater (Negative) mg/dL Urine Ketones 80 or greater (Negative) mg/dL Urine Occult Blood Negative (Negative) Urine Nitrate Negative (Negative) Urine Bilirubin Negative (Negative) Urine Urobilinogen Less than 2 (Less than 2) mg/dL Ur Leukocyte Esterase Negative (Negative) Urine WBC Less than 1 (0-5) /hpf Urine Mucus Few H (Occasional) /lpf Micro UA Comment Culture not ind Urine Culture Comments Culture not ind ECG Data EKG Prior to Arrival: No Attestation: I personally reviewed and interpreted this ECG as follows: (Sinus rhythm at a rate of 87 bpm. No acute STT wave changes. Fascicular block present.) Discharge Plan Discharge Disposition Patient Disposition: 30 Still Patient Discharge Condition Condition: Serious Discharge Details Diagnosis: DKA (diabetic ketoacidoses), Acute dehydration Physicians Team ED Provider: Radha Kimball Primary Care Provider: [facility] Attending Provider: Sánchez Mortensen Discharge Interventions Interventions: Vital Signs Last Done: 09/16/17 12:47 Status ED Status: Admitted Patient
[2017-09-16 16:29] LABS: Anion Gap 9 meq/L (5-15); Beta Hydroxybutyric Acid 2.78 mmol/L (0.00-0.39); Blood Urea Nitrogen 14 mg/dL (7-18); Calcium 7.7 mg/dL (8.5-10.1); Chloride 110 meq/L (98-107); Glomerular Filtration Rate Greater Than 89 mL/min (>89); Glucose,Random 101 mg/dL (74-106); Potassium 4.1 meq/L (3.5-5.1); Sodium 140 meq/L (136-145)
--- NOTE | 2017-09-16 23:29 | ECG ---
Date Performed: 09/16/2017 Time Performed: 10:11:51 PTAGE: 32 years EKG: Sinus rhythm LEFT ANTERIOR FASCICULAR BLOCK ABNORMAL ECG NO PREVIOUS TRACING DOCTOR: Marcell Aldridge Interpretating Date/Time 09/16/2017 23:28:35
== END 2017-09-16 16:30 | disposition left against medical advice (07) ==
LOC: NEPC 08:12 → NEDA 13:23
PROVIDERS: ADMIT Family Medicine; ATTEND Family Medicine

== ENCOUNTER 2017-11-16 22:08 | Inpatient (IN) ==
[2017-11-16] MEDS ORDERED: Acetaminophen 325 MG Tablet PO ONE (22:56)
[2017-11-16] MEDS ORDERED: Morphine Sulfate Inj 8 MG/ML Vial IV.PUSH ONE (22:56)
[2017-11-16] MEDS ORDERED: Sod Chloride 0.9% Inj 100 ML IV.SIG SCH (23:00)
[2017-11-16] MEDS ORDERED: Sod Chloride 0.9% Inj 1,000 ML IV.SIG SCH ×2 (23:00)
[2017-11-16 23:01] LABS: Bilirubin,Urine Negative (Negative); Clarity,Urine Clear (Clear); Color,Urine Yellow (Yellw/Straw); Glucose,Urine (UA) 500 or Greater mg/dL (Negative); Leukocyte Esterase,Urine Negative (Negative); Nitrite,Urine Negative (Negative); Specific Gravity,Urine 1.029 (1.002-1.035)
[2017-11-16 23:02] LABS: Baso % (Auto) 0.1 % (0.0-2.0); Eos # (Auto) 0.1 th/mm3 (0.0-0.4); Eos % (Auto) 1.1 % (0.0-4.0); Hematocrit 47.3 % (39.0-51.0); Hemoglobin 16.3 gm/dL (13.0-17.0); Lymph # (Auto) 0.6 th/mm3 (1.0-4.8); Mean Corpuscular HGB Conc 34.5 % (32.0-36.0); Mean Corpuscular Hemoglobin 33.3 pg (27.0-34.0); Mean Corpuscular Volume 96.5 fL (80.0-100.0); Mean Platelet Volume 9.2 fL (7.0-11.0); Mono # (Auto) 0.6 th/mm3 (0.0-0.9); Neut # (Auto) 9.2 th/mm3 (1.8-7.7); Neut % (Auto) 86.8 % (16.0-70.0); Platelet Count 212 th/mm3 (150-450); Red Cell Distribution Width 13.5 % (11.6-17.2); White Blood Count 10.5 th/mm3 (4.0-11.0)
--- NOTE | 2017-11-16 23:02 | XR ---
EXAM DATE: 11/16/2017 10:56 PM EDT AGE/SEX: 32 years / Male INDICATIONS: Fever. Shortness of breath. CLINICAL DATA: This is the patient's initial encounter. Patient reports that signs and symptoms have been present for 2 days and indicates a pain score of 0/10. MEDICAL/SURGICAL HISTORY: . Diabetes mellitus type 2. Lymphoma. None. COMPARISON: [facility], CT ABDOMEN & PELVIS W CONTRAST, 04/11/2017. . FINDINGS: A single AP view of the chest demonstrates the lungs to be symmetrically aerated without evidence of mass, infiltrate or effusion. The cardiomediastinal contours are unremarkable. Osseous structures a re intact. CONCLUSION: Normal one view chest x-ray. Electronically signed by: Tuan Thomas MD 11/16/2017 11:01 PM EDT
[2017-11-16] MEDS: Sod Chloride 0.9% Inj 1,000 ML IV.SIG SCH (23:07)
[2017-11-16] MEDS ORDERED: Morphine Inj 4 MG/ML Vial IV.PUSH ONE (23:15)
[2017-11-16 23:23] LABS: Alanine Aminotransferase 35 U/L (12-78); Albumin 3.7 g/dL (3.4-5.0); Anion Gap 16 meq/L (5-15); Aspartate Aminotransferase 15 U/L (15-37); Blood Urea Nitrogen 22 mg/dL (7-18); Calcium 7.9 mg/dL (8.5-10.1); Carbon Dioxide 21.8 meq/L (21.0-32.0); Chloride 99 meq/L (98-107); Glomerular Filtration Rate Greater Than 89 mL/min (>89); Glucose,Random 250 mg/dL (74-106); Sodium 137 meq/L (136-145)
[2017-11-16 23:32] LABS: Alkaline Phosphatase 115 U/L (45-117); Beta Hydroxybutyric Acid 5.32 mmol/L (0.00-0.39); Total Protein 6.9 g/dL (6.4-8.2)
--- NOTE | 2017-11-17 00:08 | ED ---
HPI General Chief complaint: Nausea/Vomiting/Diarrhea Stated complaint: fever/vomiting/abdominal pain Time Seen by Provider: 11/16/17 22:35 Source: patient Mode of arrival: ambulatory Limitations: no limitations History of Present Illness HPI Narrative: 32-year-old male arrives with nausea vomiting diarrhea and abdominal pain. Started about 3/2 hours ago. The patient is type I diabetic. Reports using his insulin this morning however not this evening. He also reports tremor left upper extremity. Chills diaphoresis and subjective fever reported. Patient reports vomiting at home and abdominal pain improved significantly afterwards. No blood in the vomit or diarrhea. Patient denies unusual food. He denies any recent drug alcohol abuse however does report abusing cocaine about 1 week ago. MD complaint: nausea, vomiting, diarrhea and abdominal pain Onset (ago): hour(s) (3) Description of Vomiting: food contents Description of Diarrhea: watery Associated Abdominal Pain: Yes Location of pain: diffuse Radiation: diffuse Severity: moderate Quality: cramping Pain Consistency: now resolved Relieving factors: vomiting Exacerbating factors: rest Related Data Home Medications Medication Instructions Recorded Confirmed insulin aspart U-100 [Novolog 1 sliding scale dose SUB-Q UD 09/16/17 11/16/17 U-100 Insulin aspart] insulin glargine [Lantus U-100 20 unit SUB-Q DAILY 09/16/17 11/16/17 Insulin] Allergies Allergy/AdvReac Type Severity Reaction Status Date / Time No Known Allergies Allergy Verified 11/16/17 22:23 PMFSH Social History Social History Substance History: Active Abuse Second Hand Smoke Exposure: Yes Smoking Status: Current every day smoker Tobacco Type: Cigarettes How Often Do You Have a Drink Containing Alcohol: 2 to 3 times a week Recent Travel in [facility] within the Last 8 Weeks: No Recent Out of Country Travel within the Last 8 Weeks: No Substance Abuse Detail Crack/Cocaine: Route Used Substance Abuse: Inhalation Immunization History Tetanus Immunization: Unsure Hx Influenza Vaccine This Season: No Exam Narrative Exam Narrative: GENERAL: 32-year-old male well-nourished well-developed moderate distress due to pain or anxiety SKIN: Focused skin assessment warm/dry. HEAD: Atraumatic. Normocephalic. EYES: Pupils equal and round. No scleral icterus. No injection or drainage. ENT: No nasal bleeding or discharge. Mucous membranes pink and moist. NECK: Trachea midline. No JVD. CARDIOVASCULAR: Tachycardia about 110. Regular rhythm. RESPIRATORY: No accessory muscle use. Clear to auscultation. Breath sounds equal bilaterally. GASTROINTESTINAL: Soft. Generalized tenderness. No rebound. MUSCULOSKELETAL: No obvious deformities. No clubbing. No cyanosis. No edema. NEUROLOGICAL: Awake and alert. No obvious cranial nerve deficits. Motor grossly within normal limits. Normal speech. PSYCHIATRIC: Appropriate mood and affect; insight and judgment normal. Course Initial Documented Vital Signs Temperature 101.7 F H 11/16/17 22:20 Pulse Rate 116 H 11/16/17 22:20 Respiratory Rate 24 11/16/17 22:20 Blood Pressure 111/55 L 11/16/17 22:20 Pulse Oximetry 94 L 11/16/17 22:20 Last Documented Vital Signs Temperature 102.8 F H 11/16/17 23:43 Pulse Rate 109 H 11/17/17 00:45 Respiratory Rate 18 11/17/17 00:45 Blood Pressure 108/59 L 11/17/17 00:45 Pulse Oximetry 97 11/17/17 00:45 Medical Decision Making [facility] Narrative Medical decision making narrative: The patient is 32 years old and has a history of type 1 diabetes. About 830 tonight, approximately 3 hours prior to ER arrival he developed nausea vomiting diarrhea abdominal pain. He reports eating at the [employer] earlier today. He denies cocaine abuse although did abuse cocaine with alcohol about a week ago. He reports noncompliance with insulin sensitivity due to tremor. The beta hydroxybutyrate is 5.3. The ABG shows 7.32/27/13.9 BE -11. Patient will be admitted for ongoing IV hydration and serial blood glucose checks. Etiology of the fever is unclear with a normal urinalysis and chest x-ray. Abdomen was reassessed about 35 minutes prior to admission at that time there is no focal tenderness over the was some voluntary guarding. Overall I think is less likely that there is an acute abdominal process. Empiric coverage with Zosyn considered reasonable. If fever persists or pain worsens advanced diagnostic imaging may be appropriate however at this time is considered overutilization. Case was discussed with Dr. Isbell. Aggregate critical care time was 45 minutes. Time to perform other separately billable procedures was not included in the critical care time. My time did not include minutes spent treating any other patients simultaneously or on activities that did not directly contribute to the patient's treatment. The services I provided to this patient were to treat and/or prevent clinically significant deterioration that could result cardiopulmonary arrest electrolyte abnormalities/dyspnea, permanent disability in: [-] I provided critical care services requiring my management, as noted below: Chart data review, documentation time, medication orders and management, vital sign assessments/reviewing monitor data, ordering and reviewing lab tests, ordering and interpreting/reviewing x-rays and diagnostic studies, care of the patient and discussion of the patient with the admitting physicians. Medical Screen Exam Complete: Yes Emergency Medical Condition: Yes Differential Diagnosis Differential Diagnosis: Constipation, Gastritis, Acute Cholecystitis, Biliary Colic, Pancreatitis, JUARES, Hepatitis, Bowel Obstruction, Cystitis, Mesenteric Ischemia, AAA, Appendicitis, Renal Stone/Hydronephrosis, GERD, perforated viscous Lab Data Lab results reviewed: Yes I reviewed the patient's lab results. Lab results narrative: Beta hydroxybutyrate is 5.3 LFTs are unremarkable urinalysis is unremarkable ABG 7. Result diagrams: 11/16/17 22:40 11/16/17 22:40 Lab Results 11/16/17 11/16/17 11/16/17 Range/Units 22:40 22:40 22:45 WBC 10.5 (4.0-11.0) th/mm3 RBC 4.90 (4.50-5.90) mil/mm3 Hgb 16.3 (13.0-17.0) gm/dL Hct 47.3 (39.0-51.0) % MCV 96.5 (80.0-100.0) fL MCH 33.3 (27.0-34.0) pg MCHC 34.5 (32.0-36.0) % RDW 13.5 (11.6-17.2) % Plt Count 212 (150-450) th/mm3 MPV 9.2 (7.0-11.0) fL Neut % (Auto) 86.8 H (16.0-70.0) % Lymph % (Auto) 6.0 L (9.0-44.0) % [place] % (Auto) 6.0 (0.0-8.0) % Eos % (Auto) 1.1 (0.0-4.0) % Baso % (Auto) 0.1 (0.0-2.0) % Neut # (Auto) 9.2 H (1.8-7.7) th/mm3 Lymph # (Auto) 0.6 L (1.0-4.8) th/mm3 [place] # (Auto) 0.6 (0.0-0.9) th/mm3 Eos # (Auto) 0.1 (0.0-0.4) th/mm3 Baso # (Auto) 0.0 (0.0-0.2) th/mm3 WBC Differential . Differential Comment Auto diff final Sodium 137 (136-145) meq/L Potassium 4.0 (3.5-5.1) meq/L Chloride 99 (98-107) meq/L Carbon Dioxide 21.8 (21.0-32.0) meq/L Anion Gap 16 H (5-15) meq/L BUN 22 H (7-18) mg/dL Creatinine 0.93 (0.60-1.30) mg/dL Estimated GFR Greater than 89 (>89) mL/min Random Glucose 250 H (74-106) mg/dL Lactic Acid (0.4-2.0) mmol/L Calcium 7.9 L (8.5-10.1) mg/dL Total Bilirubin 1.0 (0.2-1.0) mg/dL AST 15 (15-37) U/L ALT 35 (12-78) U/L Alkaline Phosphatase 115 (45-117) U/L Total Protein 6.9 (6.4-8.2) g/dL Albumin 3.7 (3.4-5.0) g/dL Beta-Hydroxybutyric Acd 5.32 H (0.00-0.39) mmol/L Urine Color Yellow (Yellw/Straw) Urine Clarity Clear (Clear) Urine pH 5.0 (5.0-8.5) Ur Specific [place] 1.029 (1.002-1.035) Urine Protein Negative (Neg-Trace) mg/dL Urine Glucose (UA) 500 or greater (Negative) mg/dL Urine Ketones 80 or greater H (Negative) mg/dL Urine Occult Blood Negative (Negative) Urine Nitrate Negative (Negative) Urine Bilirubin Negative (Negative) Urine Urobilinogen Less than 2 (Less than 2) mg/dL Ur Leukocyte Esterase Negative (Negative) Urine RBC Less than 1 (0-3) /hpf Urine WBC 1 (0-5) /hpf Micro UA Comment Culture not ind Ur Microscopic Review Not Reportable Urine Culture Comments Culture not ind 11/16/17 Range/Units 23:05 WBC (4.0-11.0) th/mm3 RBC (4.50-5.90) mil/mm3 Hgb (13.0-17.0) gm/dL Hct (39.0-51.0) % MCV (80.0-100.0) fL MCH (27.0-34.0) pg MCHC (32.0-36.0) % RDW (11.6-17.2) % Plt Count (150-450) th/mm3 MPV (7.0-11.0) fL Neut % (Auto) (16.0-70.0) % Lymph % (Auto) (9.0-44.0) % [place] % (Auto) (0.0-8.0) % Eos % (Auto) (0.0-4.0) % Baso % (Auto) (0.0-2.0) % Neut # (Auto) (1.8-7.7) th/mm3 Lymph # (Auto) (1.0-4.8) th/mm3 [place] # (Auto) (0.0-0.9) th/mm3 Eos # (Auto) (0.0-0.4) th/mm3 Baso # (Auto) (0.0-0.2) th/mm3 WBC Differential Differential Comment Sodium (136-145) meq/L Potassium (3.5-5.1) meq/L Chloride (98-107) meq/L Carbon Dioxide (21.0-32.0) meq/L Anion Gap (5-15) meq/L BUN (7-18) mg/dL Creatinine (0.60-1.30) mg/dL Estimated GFR (>89) mL/min Random Glucose (74-106) mg/dL Lactic Acid 1.0 (0.4-2.0) mmol/L Calcium (8.5-10.1) mg/dL Total Bilirubin (0.2-1.0) mg/dL AST (15-37) U/L ALT (12-78) U/L Alkaline Phosphatase (45-117) U/L Total Protein (6.4-8.2) g/dL Albumin (3.4-5.0) g/dL Beta-Hydroxybutyric Acd (0.00-0.39) mmol/L Urine Color (Yellw/Straw) Urine Clarity (Clear) Urine pH (5.0-8.5) Ur Specific [place] (1.002-1.035) Urine Protein (Neg-Trace) mg/dL Urine Glucose (UA) (Negative) mg/dL Urine Ketones (Negative) mg/dL Urine Occult Blood (Negative) Urine Nitrate (Negative) Urine Bilirubin (Negative) Urine Urobilinogen (Less than 2) mg/dL Ur Leukocyte Esterase (Negative) Urine RBC (0-3) /hpf Urine WBC (0-5) /hpf Micro UA Comment Ur Microscopic Review Urine Culture Comments Imaging Data Radiologist's impression: Chest X-Ray 11/16/17 22:38 CONCLUSION: Normal one view chest x-ray. Discharge Plan Discharge Disposition Patient Disposition: 30 Still Patient Physicians Team ED Provider: Nicholas Aldridge Primary Care Provider: [facility]ician 's Rxs /Orders / Referrals /Forms Prescriptions: No Action insulin glargine [Lantus U-100 Insulin] 100 unit/mL Solution 20 unit SUB-Q DAILY RF: 0 insulin aspart U-100 [Novolog U-100 Insulin aspart] 100 unit/mL Solution 1 sliding scale dose SUB-Q UD RF: 0 Discharge Interventions Interventions: Vital Signs Last Done: 11/17/17 00:45 Status ED Status: With Doctor
[2017-11-17 01:19] LABS: ABG PCO2 28 mmHg (38-42); ABG PO2 82 mmHg (61-120)
[2017-11-17] MEDS ORDERED: Piperacil/Tazo 4.5 GM Premix 4.5 GM/100 ML BAG IV.SIG ONE (01:31)
[2017-11-17 01:40] LABS: Amphetamine Screen,Urine Neg (Neg); Barbiturate Screen,Urine Neg (Neg); Cannabinoid Screen,Urine Neg (Neg); Cocaine Screen,Urine Neg (Neg)
[2017-11-17 01:41] LABS: Opiate Screen,Urine Neg (Neg)
[2017-11-17] MEDS ORDERED: Dextrose 50% in Water 50 ML Vial IV.PUSH PRN (01:46)
[2017-11-17] MEDS ORDERED: Bisacodyl 10 MG Supp RECTAL PRN (01:46)
[2017-11-17] MEDS ORDERED: Acetaminophen 325 MG Tablet PO PRN (01:46)
--- NOTE | 2017-11-17 02:45 | P.HPIM ---
History of Present Illness Primary Care Physician: [facility] History of Present Illness: This is a 32-year-old male with a PMH of DM, NHL in Remission x22yrs and Tobacco Abuse who presented to the ER w/ complaints of abdominal pain, nausea/ vomiting and rigors x1 day. Denies diarrhea or sick contacts. Notes abdominal pain is severe, 10/10, generalized, improved after vomiting. Admit to smoking crack approx 1wk ago, no other drugs or alcohol. On arrival, BP 111/55, HR 116 , O2 sat 94% on RA, Temp 102.8. CBC unremarkable. Chemistry unremarkable except for AG 16. BUN 22. BS 250. Lactic Acid normal. Beta hydroxy 5.32. UA negative for UTI. Urine Drug Screen negative. CXR normal. S/p IVF, Zosyn and Morphine in ER w/ some improvement, pain now improved. - Diagnosis (1) SIRS (systemic inflammatory response syndrome) (2) Metabolic acidosis (3) DM (diabetes mellitus) Inpatient Certification: I certify that the inpatient services were ordered in accordance with Medicare regulations governing the order. This includes certification that hospital inpatient services are reasonable and necessary and in the case of services not specified as inpatient-only under 42 CFR 419.22(n), that they are appropriately provided as inpatient services in accordance to with the 2-midnight benchmark under 43 CFR 412.3(e) Estimated Total Length of Stay (Days): 2 Plans for Post Hospital Care: Not yet determined Review of Systems PAST FAMILY HISTORY: Reviewed. No h/o DM or CAD All other systems reviewed negative except as stated in [facility] - History History Provided By: Patient - Medical History Medical History: Medical History (Last Reviewed 11/16/17 @ 22:22 by Christiano Giang RN) Cardiomyopathy (Acute) Diabetes (Acute) Non-Hodgkin lymphoma in remission Port-A-Cath in place Tobacco abuse - Tobacco History Second Hand Smoke Exposure: Yes Tobacco Use In Past 30 Days: Yes Smoking Status: Current every day smoker Tobacco Type: Cigarettes - Alcohol History How Often Do You Have a Drink Containing Alcohol: 2 to 3 times a week - Substance Use History Substance History: Active Abuse - Substance Use Type Crack/Cocaine Route Used: Inhalation - Travel History Recent Travel in the [place] Within the Last 8 Weeks: No Recent Travel Out of the Country Within the Last 8 Weeks: No - Immunization History Tetanus Immunization: Unsure Hx Influenza Vaccine This Season: No Medications and Allergies Active Medications: Active Medications Acetaminophen (Tylenol) 650 mg PO Q4H PRN PRN Reason: Temp > 100.4 Al Hydroxide/Mg Hydroxide (Milk Of Magnesia Liq) 30 ml PO Q12H PRN PRN Reason: Mild Constipation Bisacodyl (Dulcolax Supp) 10 mg RECTAL DAILY PRN PRN Reason: SEVERE CONSITIPATION Dextrose (D50w Vial) 50 ml IV.PUSH UNSCH PRN PRN Reason: PER HYPOGLYCEMIA PROTOCOL Glucagon (Glucagon Inj) 1 mg OTHER PRN PRN PRN Reason: for Hypoglycemia Protocol Sodium Chloride (Ns Inj) 1,000 mls @ 0 mls/hr IV.SIG .Q0M SHANNAN Last Infusion: 11/17/17 00:19 Dose: Infused Sodium Chloride (Ns Inj) 1,000 mls @ 0 mls/hr IV.SIG .Q0M SHANNAN Last Infusion: 11/17/17 00:19 Dose: Infused Sodium Chloride (Ns Inj) 1,000 mls @ 0 mls/hr IV.SIG .Q0M SHANNAN Last Infusion: 11/16/17 23:13 Dose: Infused Sodium Chloride (Ns Inj) 100 mls @ 0 mls/hr IV.SIG .Q0M SHANNAN Last Infusion: 11/16/17 23:30 Dose: Infused Sodium Chloride (Ns Inj) 1,000 mls @ 100 mls/hr IV.CONT .Q10H SHANNAN Piperacillin/Tazobactam/Dextrose (Zosyn 4.5 Gm Premix) 4.5 gm in 100 mls @ 200 mls/hr IV.SIG Q6H SHANNAN Insulin Aspart (Novolog Insulin Correctional Sugar Inj) 0 unit SQ ACHS SHANNAN; Protocol Lactulose (Lactulose Liq) 30 ml PO DAILY PRN PRN Reason: SEVERE CONSITIPATION Metoclopramide HCl (Reglan Inj) 10 mg IV.PUSH Q6HR PRN; Protocol PRN Reason: NAUSEA OR VOMITING Ondansetron HCl (Zofran Inj) 4 mg IV.PUSH Q6H PRN PRN Reason: NAUSEA OR VOMITING Senna/Docusate Sodium (Drea-Colace) 1 tab PO BID SHANNAN Sennosides (Senokot) 17.2 mg PO Q12H PRN PRN Reason: Moderate Constipation Allergies Allergy/AdvReac Type Severity Reaction Status Date / Time No Known Allergies Allergy Verified 11/16/17 22:23 Home Medications Medication Instructions Recorded Confirmed Type insulin aspart U-100 [Novolog 1 sliding scale dose SUB-Q UD 09/16/17 11/16/17 History U-100 Insulin aspart] insulin glargine [Lantus U-100 20 unit SUB-Q DAILY 09/16/17 11/16/17 History Insulin] Exam Vital signs: Vital Signs 11/16/17 22:20 11/16/17 23:10 11/16/17 23:43 Temperature 101.7 F H 102.8 F H Pulse Rate 116 H 117 H 116 H Respiratory Rate 24 26 H 20 Blood Pressure 111/55 L 113/70 91/50 L Pulse Oximetry 94 L 97 93 L 11/17/17 00:18 11/17/17 00:45 11/17/17 01:32 Temperature 100.3 F H Pulse Rate 110 H 109 H Respiratory Rate 18 18 Blood Pressure 99/60 L 108/59 L Pulse Oximetry 95 97 Intake & Output 11/16/17 11/16/17 11/17/17 06:59 18:59 06:59 Intake Total 3200 / 3200 Balance 3200 / 3200 Weight 58.967 kg Intake: IV 3200 / 3200 Zosyn 4.5 GM Premix 4.5 gm In 100 / 100 100 ml @ 200 mls/hr IV.SIG ONCE ONE Rx#:[id number] NS Inj 1,000 ML @ Wide Open IV. 3100 / 3100 SIG .Q0M SHANNAN Rx#:[id number] Narrative: PE: GENERAL: Young white male in no acute distress, appears tired, flushed. SKIN: Focused skin assessment warm and dry. HEENT: PERRLA, EOMI. No scleral icterus or conjunctival pallor. No lid lag or facial droop. CARDIOVASCULAR: Regular rate and rhythm. No obvious murmurs to auscultation. No chest tenderness to palpation. RESPIRATORY: No obvious rhonchi or wheezing. Clear to auscultation. Breath sounds equal bilaterally. GASTROINTESTINAL: Abdomen soft, non-tender, nondistended. BS normal. MUSCULOSKELETAL: Extremities without clubbing, cyanosis, or edema. No obvious deformities. NEUROLOGICAL: Awake, alert and oriented x4. No focal neurologic deficits. Moving both upper and lower extremities spontaneously. PSYCHIATRIC: Appropriate mood and affect. Insight and judgment normal. Results - Labs CBC & Chem 7: 11/16/17 22:40 11/16/17 22:40 Labs: Short CBC 11/16/17 Range/Units 22:40 WBC 10.5 (4.0-11.0) th/mm3 Hgb 16.3 (13.0-17.0) gm/dL Hct 47.3 (39.0-51.0) % Plt Count 212 (150-450) th/mm3 BMP 11/16/17 22:40 Sodium 137 Potassium 4.0 Chloride 99 Carbon Dioxide 21.8 BUN 22 H Creatinine 0.93 Calcium 7.9 L Liver Function 11/16/17 Range/Units 22:40 Total Bilirubin 1.0 (0.2-1.0) mg/dL AST 15 (15-37) U/L ALT 35 (12-78) U/L Alkaline Phosphatase 115 (45-117) U/L Albumin 3.7 (3.4-5.0) g/dL Urine 11/16/17 Range/Units 22:45 Urine Color Yellow (Yellw/Straw) Urine Clarity Clear (Clear) Urine pH 5.0 (5.0-8.5) Ur Specific [place] 1.029 (1.002-1.035) Urine Protein Negative (Neg-Trace) mg/dL Urine Glucose (UA) 500 or greater (Negative) mg/dL - Imaging Impressions Chest X-Ray 11/16/17 22:38 CONCLUSION: Normal one view chest x-ray. Caprini VTE Risk Assessment Caprini VTE Risk Assessment: No/Low Risk (score <= 1) Caprini Risk Assessment Model: Point Value = 1 Point Value = 2 Point Value = 3 Point Value = 5 Age 41-60 Minor surgery BMI > 25 kg/m2 Swollen legs Varicose veins or History of unexplained or recurrent spontaneous Oral contraceptives or hormone replacement Sepsis (< 1 month) Serious lung disease, including pneumonia (< 1 month) Abnormal pulmonary function Acute myocardial infarction Congestive heart failure (< 1 month) History of inflammatory bowel disease Medical patient at bed rest Age 61-74 Arthroscopic surgery Major open surgery (> 45 min) Laparoscopic surgery (> 45 min) Malignancy Confined to bed (> 72 hours) Immobilizing plaster cast Central venous access Age >= 75 History of VTE Family history of VTE Factor V Leiden Prothrombin [id number] Lupus anticoagulant Anticardiolipin antibodies Elevated serum homocysteine Heparin-induced thrombocytopenia Other congenital or acquired thrombophilia Stroke (< 1 month) Elective arthroplasty Hip, pelvis, or leg fracture Acute spinal cord injury (< 1 month) Prophylaxis Regimen: Total Risk Factor Score Risk Level Prophylaxis Regimen 0-1 Low Early ambulation 2 Moderate Order ONE of the following: *Sequential Compression Device (SCD) *Heparin 5000 units SQ BID 3-4 Higher Order ONE of the following medications: *Heparin 5000 units SQ TID *Enoxaparin/Lovenox 40 mg SQ daily (WT < 150 kg, CrCl > 30 mL/min) *Enoxaparin/Lovenox 30 mg SQ daily (WT < 150 kg, CrCl > 10-29 mL/min) *Enoxaparin/Lovenox 30 mg SQ BID (WT < 150 kg, CrCl > 30 mL/min) AND/OR *Sequential Compression Device (SCD) 5 or more Highest Order ONE of the following medications: *Heparin 5000 units SQ TID (Preferred with Epidurals) *Enoxaparin/Lovenox 40 mg SQ daily (WT < 150 kg, CrCl > 30 mL/min) *Enoxaparin/Lovenox 30 mg SQ daily (WT < 150 kg, CrCl > 10-29 mL/min) *Enoxaparin/Lovenox 30 mg SQ BID (WT < 150 kg, CrCl > 30 mL/min) AND *Sequential Compression Device (SCD) Assessment and Plan - Assessment (1) SIRS (systemic inflammatory response syndrome) Code(s): R65.10 - Systemic inflammatory response syndrome (SIRS) of non- infectious origin without acute organ dysfunction Status: Acute (2) Metabolic acidosis Code(s): E87.2 - Acidosis Status: Acute (3) DM (diabetes mellitus) Code(s): E11.9 - Type 2 diabetes mellitus without complications Status: Acute - Plan A/P: 1. SIRS: Temp 102.8, HR 116, WBC normal, unclear etiology-U/a negative, CXR negative, images reviewed, likely viral syndrome. Continue w/ IVF, empiric Zosyn IV, telemetry. 2. Metabolic Acidosis: AG 16, B-hydroxy 5.32, normal CO2, mild DKA, will continue w/ aggressive IVF for hydration, sliding scale w/ Accu-checks, repeat labs. 3. DM: Check Hgb A1c, sliding scale w/ Accu-Cheks, resume home Insulin once taking adequate PO. 4. DVT Prophylaxis: SCD/Teds 5. Social work for d/c planning as needed 6. Case discussed w/ ER physician at length, labs/records/imaging reviewed by me
[2017-11-17] MEDS: Sod Chloride 0.9% Inj 1,000 ML IV.CONT SCH ×2 (02:48→13:07)
[2017-11-17 07:43] LABS: Baso % (Auto) 0.4 % (0.0-2.0); Eos % (Auto) 0.5 % (0.0-4.0); Hematocrit 42.5 % (39.0-51.0); Hemoglobin 14.9 gm/dL (13.0-17.0); Lymph # (Auto) 0.2 th/mm3 (1.0-4.8); Mean Corpuscular Volume 97.1 fL (80.0-100.0); Mean Platelet Volume 9.1 fL (7.0-11.0); Mono # (Auto) 0.5 th/mm3 (0.0-0.9); Mono % (Auto) 8.3 % (0.0-8.0); Neut # (Auto) 5.1 th/mm3 (1.8-7.7); Neut % (Auto) 86.8 % (16.0-70.0); Platelet Count 195 th/mm3 (150-450); Red Blood Count 4.38 mil/mm3 (4.50-5.90); Red Cell Distribution Width 13.4 % (11.6-17.2); White Blood Count 5.9 th/mm3 (4.0-11.0)
[2017-11-17] MEDS: Insulin NovoLOG Aspart Correctional Sugar Inj SQ SCH ×4 (08:16→20:40)
[2017-11-17] MEDS: Senna/Docusate Sodium 8.6/50 MG Tablet PO SCH ×2 (08:17→20:33)
[2017-11-17] MEDS: Piperacil/Tazo 4.5 GM Premix 4.5 GM/100 ML BAG IV.SIG SCH ×3 (08:19→20:31)
[2017-11-17 08:27] LABS: Alanine Aminotransferase 25 U/L (12-78); Albumin 2.8 g/dL (3.4-5.0); Alkaline Phosphatase 84 U/L (45-117); Anion Gap 17 meq/L (5-15); Aspartate Aminotransferase 12 U/L (15-37); Blood Urea Nitrogen 17 mg/dL (7-18); Calcium 6.8 mg/dL (8.5-10.1); Carbon Dioxide 14.3 meq/L (21.0-32.0); Chloride 107 meq/L (98-107); Glomerular Filtration Rate Greater Than 89 mL/min (>89); Glucose,Random 224 mg/dL (74-106); Potassium 4.3 meq/L (3.5-5.1); Sodium 138 meq/L (136-145); Total Protein 5.5 g/dL (6.4-8.2)
[2017-11-17 12:44] LABS: Hemoglobin A1c 12.9 % (4.3-6.0)
[2017-11-17] MEDS: Sod Chloride 0.9% Inj 1,000 ML IV.SIG SCH (13:07)
--- NOTE | 2017-11-17 13:45 | P.PNIM ---
Subjective Interval history: This is a 32-year-old male with a PMH of DM, NHL in Remission x22yrs and Tobacco Abuse who presented to the ER w/ complaints of abdominal pain, nausea/ vomiting and rigors x1 day. Denies diarrhea or sick contacts. Notes abdominal pain is severe, 10/10, generalized, improved after vomiting. Admit to smoking crack approx 1wk ago, no other drugs or alcohol. On arrival, BP 111/55, HR 116 , O2 sat 94% on RA, Temp 102.8. CBC unremarkable. Chemistry unremarkable except for AG 16. BUN 22. BS 250. Lactic Acid normal. Beta hydroxy 5.32. UA negative for UTI. Urine Drug Screen negative. CXR normal. S/p IVF, Zosyn and Morphine in ER w/ some improvement, pain now improved. AM LABS DW RN AND PT AND CM Physical Exam Vital signs: Vital Signs 11/16/17 22:20 11/16/17 23:10 11/16/17 23:43 Temperature 101.7 F H 102.8 F H Pulse Rate 116 H 117 H 116 H Respiratory Rate 24 26 H 20 Blood Pressure 111/55 L 113/70 91/50 L Pulse Oximetry 94 L 97 93 L 11/17/17 00:18 11/17/17 00:45 11/17/17 01:32 Temperature 100.3 F H Pulse Rate 110 H 109 H Respiratory Rate 18 18 Blood Pressure 99/60 L 108/59 L Pulse Oximetry 95 97 11/17/17 03:20 11/17/17 03:22 11/17/17 04:00 Temperature 100.5 F H Pulse Rate 112 H 112 H Respiratory Rate 20 18 24 Blood Pressure 105/66 106/65 Pulse Oximetry 97 96 11/17/17 06:56 11/17/17 07:32 11/17/17 08:00 Temperature 98.1 F Pulse Rate 104 H 100 H Respiratory Rate 14 17 Blood Pressure 99/58 L Pulse Oximetry 98 11/17/17 12:00 Temperature 98.3 F Pulse Rate 101 H Respiratory Rate 17 Blood Pressure 98/59 L Pulse Oximetry 98 Intake & Output 11/16/17 11/17/17 11/17/17 18:59 06:59 18:59 Intake Total 3680 / 3680 1100 / 1100 Output Total 700 / 700 Balance 2980 / 2980 1100 / 1100 Weight 57.2 kg Intake: IV 3200 / 3200 1100 / 1100 NS Inj 1,000 ML @ 100 mls/hr IV 1000 / 1000 .CONT .Q10H SHANNAN Rx#:[id number] Zosyn 4.5 GM Premix 4.5 gm In 100 / 100 100 / 100 100 ml @ 200 mls/hr IV.SIG Q6H SHANNAN Rx#:[id number] NS Inj 1,000 ML @ Wide Open IV. 3100 / 3100 SIG .Q0M SHANNAN Rx#:[id number] Oral 480 / 480 Output: Urine 700 / 700 Other: # Voids 1 Date of Last Bowel Movement 11/15/17 11/15/17 Narrative: GENERAL: Young white male in no acute distress, appears tired, flushed. SKIN: Focused skin assessment warm and dry. HEENT: PERRLA, EOMI. No scleral icterus or conjunctival pallor. No lid lag or facial droop. CARDIOVASCULAR: Regular rate and rhythm. No obvious murmurs to auscultation. No chest tenderness to palpation. RESPIRATORY: No obvious rhonchi or wheezing. Clear to auscultation. Breath sounds equal bilaterally. GASTROINTESTINAL: Abdomen soft, non-tender, nondistended. BS normal. MUSCULOSKELETAL: Extremities without clubbing, cyanosis, or edema. No obvious deformities. NEUROLOGICAL: Awake, alert and oriented x4. No focal neurologic deficits. Moving both upper and lower extremities spontaneously. PSYCHIATRIC: Appropriate mood and affect. Insight and judgment normal. Results - Labs CBC & Chem 7: 11/17/17 07:19 11/17/17 07:19 Laboratory Results - last 24 hr 11/16/17 11/16/17 11/16/17 22:40 22:40 22:45 WBC 10.5 RBC 4.90 Hgb 16.3 Hct 47.3 MCV 96.5 MCH 33.3 MCHC 34.5 RDW 13.5 Plt Count 212 MPV 9.2 Neut % (Auto) 86.8 H Lymph % (Auto) 6.0 L [place] % (Auto) 6.0 Eos % (Auto) 1.1 Baso % (Auto) 0.1 Neut # (Auto) 9.2 H Lymph # (Auto) 0.6 L [place] # (Auto) 0.6 Eos # (Auto) 0.1 Baso # (Auto) 0.0 WBC Differential . Differential Comment Auto diff final Puncture Site Patient Temperature O2 Saturation ABG pH ABG pCO2 ABG pO2 ABG HCO3 ABG O2 Content ABG Base Excess ABG Methemoglobin Marcio Test Hemoglobin Carboxyhemoglobin Critical Value Sodium 137 Potassium 4.0 Chloride 99 Carbon Dioxide 21.8 Anion Gap 16 H BUN 22 H Creatinine 0.93 Estimated GFR Greater than 89 POC Glucose Random Glucose 250 H Hemoglobin A1c Lactic Acid Calcium 7.9 L Prot Corrected Calcium Total Bilirubin 1.0 AST 15 ALT 35 Alkaline Phosphatase 115 Total Protein 6.9 Albumin 3.7 Beta-Hydroxybutyric Acd 5.32 H Urine Color Yellow Urine Clarity Clear Urine pH 5.0 Ur Specific [place] 1.029 Urine Protein Negative Urine Glucose (UA) 500 or greater Urine Ketones 80 or greater H Urine Occult Blood Negative Urine Nitrate Negative Urine Bilirubin Negative Urine Urobilinogen Less than 2 Ur Leukocyte Esterase Negative Urine RBC Less than 1 Urine WBC 1 Micro UA Comment Culture not ind Ur Microscopic Review Not Reportable Urine Culture Comments Culture not ind Urine Opiates Screen Ur Barbiturates Screen Ur Amphetamines Screen U Benzodiazepines Scrn Urine Cocaine Screen U Cannabinoids Screen 11/16/17 11/16/17 11/17/17 22:45 23:05 01:06 WBC RBC Hgb Hct MCV MCH MCHC RDW Plt Count MPV Neut % (Auto) Lymph % (Auto) [place] % (Auto) Eos % (Auto) Baso % (Auto) Neut # (Auto) Lymph # (Auto) [place] # (Auto) Eos # (Auto) Baso # (Auto) WBC Differential Differential Comment Puncture Site Right radial Patient Temperature 98.6 O2 Saturation 90 ABG pH 7.32 L ABG pCO2 28 L ABG pO2 82 ABG HCO3 14 L* ABG O2 Content 17.6 ABG Base Excess -11.0 L ABG Methemoglobin 1.2 Marcio Test Present Hemoglobin 13.9 Carboxyhemoglobin 2.3 Critical Value Yes Sodium Potassium Chloride Carbon Dioxide Anion Gap BUN Creatinine Estimated GFR POC Glucose Random Glucose Hemoglobin A1c Lactic Acid 1.0 Calcium Prot Corrected Calcium Total Bilirubin AST ALT Alkaline Phosphatase Total Protein Albumin Beta-Hydroxybutyric Acd Urine Color Urine Clarity Urine pH Ur Specific [place] Urine Protein Urine Glucose (UA) Urine Ketones Urine Occult Blood Urine Nitrate Urine Bilirubin Urine Urobilinogen Ur Leukocyte Esterase Urine RBC Urine WBC Micro UA Comment Ur Microscopic Review Urine Culture Comments Urine Opiates Screen Neg Ur Barbiturates Screen Neg Ur Amphetamines Screen Neg U Benzodiazepines Scrn Neg Urine Cocaine Screen Neg U Cannabinoids Screen Neg 11/17/17 11/17/17 11/17/17 07:19 07:19 07:19 WBC 5.9 RBC 4.38 L Hgb 14.9 Hct 42.5 MCV 97.1 MCH 34.0 MCHC 35.0 RDW 13.4 Plt Count 195 MPV 9.1 Neut % (Auto) 86.8 H Lymph % (Auto) 4.0 L [place] % (Auto) 8.3 H Eos % (Auto) 0.5 Baso % (Auto) 0.4 Neut # (Auto) 5.1 Lymph # (Auto) 0.2 L [place] # (Auto) 0.5 Eos # (Auto) 0.0 Baso # (Auto) 0.0 WBC Differential . Differential Comment Auto diff final Puncture Site Patient Temperature O2 Saturation ABG pH ABG pCO2 ABG pO2 ABG HCO3 ABG O2 Content ABG Base Excess ABG Methemoglobin Marcio Test Hemoglobin Carboxyhemoglobin Critical Value Sodium 138 Potassium 4.3 Chloride 107 D Carbon Dioxide 14.3 L Anion Gap 17 H BUN 17 Creatinine 0.76 Estimated GFR Greater than 89 POC Glucose Random Glucose 224 H Hemoglobin A1c 12.9 H Lactic Acid Calcium 6.8 L* D Prot Corrected Calcium 7.6 L Total Bilirubin 0.6 AST 12 L ALT 25 Alkaline Phosphatase 84 Total Protein 5.5 L D Albumin 2.8 L D Beta-Hydroxybutyric Acd Urine Color Urine Clarity Urine pH Ur Specific [place] Urine Protein Urine Glucose (UA) Urine Ketones Urine Occult Blood Urine Nitrate Urine Bilirubin Urine Urobilinogen Ur Leukocyte Esterase Urine RBC Urine WBC Micro UA Comment Ur Microscopic Review Urine Culture Comments Urine Opiates Screen Ur Barbiturates Screen Ur Amphetamines Screen U Benzodiazepines Scrn Urine Cocaine Screen U Cannabinoids Screen 11/17/17 11/17/17 07:24 12:39 WBC RBC Hgb Hct MCV MCH MCHC RDW Plt Count MPV Neut % (Auto) Lymph % (Auto) [place] % (Auto) Eos % (Auto) Baso % (Auto) Neut # (Auto) Lymph # (Auto) [place] # (Auto) Eos # (Auto) Baso # (Auto) WBC Differential Differential Comment Puncture Site Patient Temperature O2 Saturation ABG pH ABG pCO2 ABG pO2 ABG HCO3 ABG O2 Content ABG Base Excess ABG Methemoglobin Marcio Test Hemoglobin Carboxyhemoglobin Critical Value Sodium Potassium Chloride Carbon Dioxide Anion Gap BUN Creatinine Estimated GFR POC Glucose 226 H 235 H Random Glucose Hemoglobin A1c Lactic Acid Calcium Prot Corrected Calcium Total Bilirubin AST ALT Alkaline Phosphatase Total Protein Albumin Beta-Hydroxybutyric Acd Urine Color Urine Clarity Urine pH Ur Specific [place] Urine Protein Urine Glucose (UA) Urine Ketones Urine Occult Blood Urine Nitrate Urine Bilirubin Urine Urobilinogen Ur Leukocyte Esterase Urine RBC Urine WBC Micro UA Comment Ur Microscopic Review Urine Culture Comments Urine Opiates Screen Ur Barbiturates Screen Ur Amphetamines Screen U Benzodiazepines Scrn Urine Cocaine Screen U Cannabinoids Screen Microbiology 11/16/17 22:40 Blood - Peripheral Aerobic Blood Culture - Preliminary No growth in 1 day 11/16/17 22:40 Blood - Peripheral Anaerobic Blood Culture - Preliminary No growth in 1 day 11/16/17 22:45 Blood - Peripheral Aerobic Blood Culture - Preliminary No growth in 1 day 11/16/17 22:45 Blood - Peripheral Anaerobic Blood Culture - Preliminary No growth in 1 day - Imaging Impressions Chest X-Ray 11/16/17 22:38 CONCLUSION: Normal one view chest x-ray. - Procedures NONE Assessment and Plan - Assessment (1) SIRS (systemic inflammatory response syndrome) Code(s): R65.10 - Systemic inflammatory response syndrome (SIRS) of non- infectious origin without acute organ dysfunction Status: Acute (2) Metabolic acidosis Code(s): E87.2 - Acidosis Status: Acute (3) DM (diabetes mellitus) Code(s): E11.9 - Type 2 diabetes mellitus without complications Status: Acute - Plan 1. SIRS: Temp 102.8, HR 116, WBC normal, unclear etiology-U/a negative, CXR negative, images reviewed, likely viral syndrome. Continue w/ IVF, empiric Zosyn IV, telemetry. 2. Metabolic Acidosis: AG 16, B-hydroxy 5.32, normal CO2, mild DKA, will continue w/ aggressive IVF for hydration, sliding scale w/ Accu-checks, repeat labs. 3. DM: Check Hgb A1c, sliding scale w/ Accu-Cheks, resume home Insulin once taking adequate PO. 4. DVT Prophylaxis: SCD/Teds 5. Social work for d/c planning as needed NONCOMPLIANCE WITH MEDICATIONS CRACK COCAINE USE Code Status: FULL CODE Discussed Condition With: RN AND PT AND CM Discharge Planning: AM LABS MONITOR FEVERS
[2017-11-18] MEDS: Sod Chloride 0.9% Inj 1,000 ML IV.CONT SCH ×2 (01:41→12:11)
[2017-11-18] MEDS: Piperacil/Tazo 4.5 GM Premix 4.5 GM/100 ML BAG IV.SIG SCH ×3 (01:41→14:03)
[2017-11-18 06:11] LABS: Baso % (Auto) 0.5 % (0.0-2.0); Eos % (Auto) 0.9 % (0.0-4.0); Hematocrit 47.5 % (39.0-51.0); Hemoglobin 15.9 gm/dL (13.0-17.0); Lymph % (Auto) 20.6 % (9.0-44.0); Mean Corpuscular HGB Conc 33.5 % (32.0-36.0); Mean Corpuscular Hemoglobin 33.1 pg (27.0-34.0); Mean Corpuscular Volume 98.6 fL (80.0-100.0); Mean Platelet Volume 9.2 fL (7.0-11.0); Mono # (Auto) 0.7 th/mm3 (0.0-0.9); Mono % (Auto) 13.5 % (0.0-8.0); Neut # (Auto) 3.3 th/mm3 (1.8-7.7); Neut % (Auto) 64.5 % (16.0-70.0); Platelet Count 210 th/mm3 (150-450); Red Blood Count 4.82 mil/mm3 (4.50-5.90); Red Cell Distribution Width 13.7 % (11.6-17.2); White Blood Count 5.1 th/mm3 (4.0-11.0)
[2017-11-18 06:44] LABS: Alanine Aminotransferase 26 U/L (12-78); Alkaline Phosphatase 93 U/L (45-117); Anion Gap 19 meq/L (5-15); Aspartate Aminotransferase 16 U/L (15-37); Blood Urea Nitrogen 13 mg/dL (7-18); Calcium 7.9 mg/dL (8.5-10.1); Carbon Dioxide 10.1 meq/L (21.0-32.0); Chloride 103 meq/L (98-107); Free T4 (Free Thyroxine) 1.01 ng/dL (0.76-1.46); Glomerular Filtration Rate 71 mL/min (>89); Glucose,Random 297 mg/dL (74-106); Magnesium 1.7 mg/dL (1.5-2.5); Phosphorus 1.9 mg/dL (2.5-4.9); Sodium 132 meq/L (136-145); Thyroid Stimulating Hormone 0.445 uIU/mL (0.358-3.740); Total Protein 6.3 g/dL (6.4-8.2)
[2017-11-18] MEDS: Insulin NovoLOG Aspart Correctional Sugar Inj SQ SCH ×2 (08:05→12:12)
[2017-11-18 08:29] VITALS: RESP 16
[2017-11-18] MEDS ORDERED: Insulin Detemir Inj 1,000 UNIT/10 ML Vial SQ SCH (09:00)
[2017-11-18] MEDS: Senna/Docusate Sodium 8.6/50 MG Tablet PO SCH (10:28)
[2017-11-18] MEDS ORDERED: Ibuprofen 400 MG Tablet PO PRN (11:12)
--- NOTE | 2017-11-18 13:42 | P.PNIM ---
Subjective Interval history: This is a 32-year-old male with a PMH of DM, NHL in Remission x22yrs and Tobacco Abuse who presented to the ER w/ complaints of abdominal pain, nausea/ vomiting and rigors x1 day. Denies diarrhea or sick contacts. Notes abdominal pain is severe, 10/10, generalized, improved after vomiting. Admit to smoking crack approx 1wk ago, no other drugs or alcohol. On arrival, BP 111/55, HR 116 , O2 sat 94% on RA, Temp 102.8. CBC unremarkable. Chemistry unremarkable except for AG 16. BUN 22. BS 250. Lactic Acid normal. Beta hydroxy 5.32. UA negative for UTI. Urine Drug Screen negative. CXR normal. S/p IVF, Zosyn and Morphine in ER w/ some improvement, pain now improved. AM LABS DW RN AND PT AND CM 11-18 denies any fevers wants to go home dc to home today dw RN AND PT AND CM SWITCH TO PO MEDS AT DC Physical Exam Vital signs: Vital Signs 11/17/17 16:00 11/17/17 19:00 11/17/17 20:30 Temperature 98.8 F 98.7 F Pulse Rate 105 H 93 H Respiratory Rate 18 18 18 Blood Pressure 96/53 L 97/60 L Pulse Oximetry 99 96 11/17/17 23:32 11/18/17 00:30 11/18/17 04:10 Temperature 97.7 F 97.8 F Pulse Rate 85 98 H Respiratory Rate 18 18 19 Blood Pressure 95/60 L 95/60 L Pulse Oximetry 97 93 L 11/18/17 08:00 Temperature 98.0 F Pulse Rate 106 H Respiratory Rate 16 Blood Pressure 89/54 L Pulse Oximetry 95 Intake & Output 11/17/17 11/18/17 11/18/17 18:59 06:59 18:59 Intake Total 2160 / 2160 2580 / 2580 1200 / 1200 Output Total 800 / 800 Balance 1360 / 1360 2580 / 2580 1200 / 1200 Weight 57.2 kg Intake: IV 1200 / 1200 2100 / 2100 1200 / 1200 NS Inj 1,000 ML @ 100 mls/hr IV 1000 / 1000 1000 / 1000 1000 / 1000 .CONT .Q10H [facility] Rx#:[id number] Zosyn 4.5 GM Premix 4.5 gm In 200 / 200 100 / 100 200 / 200 100 ml @ 200 mls/hr IV.SIG Q6H [facility] Rx#:[id number] NS Inj 1,000 ML @ Wide Open IV. 1000 / 1000 SIG .Q0M [facility] Rx#:[id number] Oral 960 / 960 480 / 480 Output: Urine 800 / 800 Other: # Voids 4 Date of Last Bowel Movement 11/15/17 11/15/17 11/18/17 # Bowel Movements 1 Narrative: GENERAL: Young white male in no acute distress, appears tired, flushed. SKIN: Focused skin assessment warm and dry. HEENT: PERRLA, EOMI. No scleral icterus or conjunctival pallor. No lid lag or facial droop. CARDIOVASCULAR: Regular rate and rhythm. No obvious murmurs to auscultation. No chest tenderness to palpation. RESPIRATORY: No obvious rhonchi or wheezing. Clear to auscultation. Breath sounds equal bilaterally. GASTROINTESTINAL: Abdomen soft, non-tender, nondistended. BS normal. MUSCULOSKELETAL: Extremities without clubbing, cyanosis, or edema. No obvious deformities. NEUROLOGICAL: Awake, alert and oriented x4. No focal neurologic deficits. Moving both upper and lower extremities spontaneously. PSYCHIATRIC: Appropriate mood and affect. Insight and judgment normal. Results - Labs CBC & Chem 7: 11/18/17 05:37 11/18/17 05:37 Laboratory Results - last 24 hr 11/17/17 11/17/17 11/18/17 16:35 20:33 05:37 WBC 5.1 RBC 4.82 Hgb 15.9 Hct 47.5 MCV 98.6 MCH 33.1 MCHC 33.5 RDW 13.7 Plt Count 210 MPV 9.2 Neut % (Auto) 64.5 Lymph % (Auto) 20.6 [place] % (Auto) 13.5 H Eos % (Auto) 0.9 Baso % (Auto) 0.5 Neut # (Auto) 3.3 Lymph # (Auto) 1.0 [place] # (Auto) 0.7 Eos # (Auto) 0.0 Baso # (Auto) 0.0 WBC Differential . Differential Comment Auto diff final Sodium Potassium Chloride Carbon Dioxide Anion Gap BUN Creatinine Estimated GFR POC Glucose 249 H 198 H Random Glucose Calcium Phosphorus Magnesium Total Bilirubin AST ALT Alkaline Phosphatase Total Protein Albumin TSH Free T4 11/18/17 11/18/17 11/18/17 05:37 07:26 11:14 WBC RBC Hgb Hct MCV MCH MCHC RDW Plt Count MPV Neut % (Auto) Lymph % (Auto) [place] % (Auto) Eos % (Auto) Baso % (Auto) Neut # (Auto) Lymph # (Auto) [place] # (Auto) Eos # (Auto) Baso # (Auto) WBC Differential Differential Comment Sodium 132 L Potassium 5.0 Chloride 103 Carbon Dioxide 10.1 L Anion Gap 19 H BUN 13 Creatinine 1.17 Estimated GFR 71 L POC Glucose 277 H 201 H Random Glucose 297 H Calcium 7.9 L D Phosphorus 1.9 L Magnesium 1.7 Total Bilirubin 0.4 AST 16 ALT 26 Alkaline Phosphatase 93 Total Protein 6.3 L D Albumin 3.0 L TSH 0.445 Free T4 1.01 Microbiology 11/16/17 22:40 Blood - Peripheral Aerobic Blood Culture - Preliminary No growth in 2 days 11/16/17 22:40 Blood - Peripheral Anaerobic Blood Culture - Preliminary No growth in 2 days 11/16/17 22:45 Blood - Peripheral Aerobic Blood Culture - Preliminary No growth in 2 days 11/16/17 22:45 Blood - Peripheral Anaerobic Blood Culture - Preliminary No growth in 2 days - Procedures NONE Assessment and Plan - Assessment (1) SIRS (systemic inflammatory response syndrome) Code(s): R65.10 - Systemic inflammatory response syndrome (SIRS) of non- infectious origin without acute organ dysfunction Status: Acute (2) Metabolic acidosis Code(s): E87.2 - Acidosis Status: Acute (3) DM (diabetes mellitus) Code(s): E11.9 - Type 2 diabetes mellitus without complications Status: Acute - Plan 1. SIRS: Temp 102.8, HR 116, WBC normal, unclear etiology-U/a negative, CXR negative, images reviewed, likely viral syndrome. Continue w/ IVF, empiric Zosyn IV, telemetry. 2. Metabolic Acidosis: AG 16, B-hydroxy 5.32, normal CO2, mild DKA, will continue w/ aggressive IVF for hydration, sliding scale w/ Accu-checks, repeat labs. 3. DM: Check Hgb A1c, sliding scale w/ Accu-Cheks, resume home Insulin once taking adequate PO. 4. DVT Prophylaxis: SCD/Teds 5. Social work for d/c planning as needed NONCOMPLIANCE WITH MEDICATIONS CRACK COCAINE USE RECOMMEND STOP COCAINE DC ON PO AUGMENTIN Code Status: FULL CODE Discussed Condition With: RN AND PT AND CM Discharge Planning: DC TO HOME TODAY
--- NOTE | 2017-11-18 13:47 | P.DS ---
Date of admission: 11/17/17 01:32 Primary care physician: [facility] Attending physician on discharge: Demetrius Ying Anticipated date of discharge: 11/18/17 Brief History from admission: This is a 32-year-old male with a PMH of DM, NHL in Remission x22yrs and Tobacco Abuse who presented to the ER w/ complaints of abdominal pain, nausea/ vomiting and rigors x1 day. Denies diarrhea or sick contacts. Notes abdominal pain is severe, 10/10, generalized, improved after vomiting. Admit to smoking crack approx 1wk ago, no other drugs or alcohol. On arrival, BP 111/55, HR 116 , O2 sat 94% on RA, Temp 102.8. CBC unremarkable. Chemistry unremarkable except for AG 16. BUN 22. BS 250. Lactic Acid normal. Beta hydroxy 5.32. UA negative for UTI. Urine Drug Screen negative. CXR normal. S/p IVF, Zosyn and Morphine in ER w/ some improvement, pain now improved. Patient update on day of discharge: This is a 32-year-old male with a PMH of DM, NHL in Remission x22yrs and Tobacco Abuse who presented to the ER w/ complaints of abdominal pain, nausea/ vomiting and rigors x1 day. Denies diarrhea or sick contacts. Notes abdominal pain is severe, 10/10, generalized, improved after vomiting. Admit to smoking crack approx 1wk ago, no other drugs or alcohol. On arrival, BP 111/55, HR 116 , O2 sat 94% on RA, Temp 102.8. CBC unremarkable. Chemistry unremarkable except for AG 16. BUN 22. BS 250. Lactic Acid normal. Beta hydroxy 5.32. UA negative for UTI. Urine Drug Screen negative. CXR normal. S/p IVF, Zosyn and Morphine in ER w/ some improvement, pain now improved. AM LABS DW RN AND PT AND CM [id number] denies any fevers wants to go home dc to home today dw RN AND PT AND CM SWITCH TO PO MEDS AT DC DS: Diagnosis - Discharge Diagnosis (1) SIRS (systemic inflammatory response syndrome) Status: Acute (2) Metabolic acidosis Status: Acute (3) DM (diabetes mellitus) Status: Acute DS: Medications - Discharge Medications Prescriptions: amoxicillin-pot clavulanate [Augmentin] 1 tab PO BID #12 tab DS: Summary Hospital Course: This is a 32-year-old male with a PMH of DM, NHL in Remission x22yrs and Tobacco Abuse who presented to the ER w/ complaints of abdominal pain, nausea/ vomiting and rigors x1 day. Denies diarrhea or sick contacts. Notes abdominal pain is severe, 10/10, generalized, improved after vomiting. Admit to smoking crack approx 1wk ago, no other drugs or alcohol. On arrival, BP 111/55, HR 116 , O2 sat 94% on RA, Temp 102.8. CBC unremarkable. Chemistry unremarkable except for AG 16. BUN 22. BS 250. Lactic Acid normal. Beta hydroxy 5.32. UA negative for UTI. Urine Drug Screen negative. CXR normal. S/p IVF, Zosyn and Morphine in ER w/ some improvement, pain now improved. AM LABS DW RN AND PT AND CM 924 denies any fevers wants to go home dc to home today dw RN AND PT AND CM SWITCH TO PO MEDS AT DC - Time Spent with Patient Total time spent providing and/or coordinating discharge services: Less than 30 minutes - Quality: VTE Deep Vein Thrombosis/Pulmonary Embolism Present on Admission: No Exam Vital signs: Vital Signs 11/17/17 16:00 11/17/17 19:00 11/17/17 20:30 Temperature 98.8 F 98.7 F Pulse Rate 105 H 93 H Respiratory Rate 18 18 18 Blood Pressure 96/53 L 97/60 L Pulse Oximetry 99 96 11/17/17 23:32 11/18/17 00:30 11/18/17 04:10 Temperature 97.7 F 97.8 F Pulse Rate 85 98 H Respiratory Rate 18 18 19 Blood Pressure 95/60 L 95/60 L Pulse Oximetry 97 93 L 11/18/17 08:00 Temperature 98.0 F Pulse Rate 106 H Respiratory Rate 16 Blood Pressure 89/54 L Pulse Oximetry 95 Intake & Output 11/17/17 11/18/17 11/18/17 18:59 06:59 18:59 Intake Total 2160 / 2160 2580 / 2580 1200 / 1200 Output Total 800 / 800 Balance 1360 / 1360 2580 / 2580 1200 / 1200 Weight 57.2 kg Intake: IV 1200 / 1200 2100 / 2100 1200 / 1200 NS Inj 1,000 ML @ 100 mls/hr IV 1000 / 1000 1000 / 1000 1000 / 1000 .CONT .Q10H [facility] Rx#:[id number] Zosyn 4.5 GM Premix 4.5 gm In 200 / 200 100 / 100 200 / 200 100 ml @ 200 mls/hr IV.SIG Q6H [facility] Rx#:[id number] NS Inj 1,000 ML @ Wide Open IV. 1000 / 1000 SIG .Q0M [facility] Rx#:[id number] Oral 960 / 960 480 / 480 Output: Urine 800 / 800 Other: # Voids 4 Date of Last Bowel Movement 11/15/17 11/15/17 11/18/17 # Bowel Movements 1 Narrative: GENERAL: Young white male in no acute distress, appears tired, flushed. SKIN: Focused skin assessment warm and dry. HEENT: PERRLA, EOMI. No scleral icterus or conjunctival pallor. No lid lag or facial droop. CARDIOVASCULAR: Regular rate and rhythm. No obvious murmurs to auscultation. No chest tenderness to palpation. RESPIRATORY: No obvious rhonchi or wheezing. Clear to auscultation. Breath sounds equal bilaterally. GASTROINTESTINAL: Abdomen soft, non-tender, nondistended. BS normal. MUSCULOSKELETAL: Extremities without clubbing, cyanosis, or edema. No obvious deformities. NEUROLOGICAL: Awake, alert and oriented x4. No focal neurologic deficits. Moving both upper and lower extremities spontaneously. PSYCHIATRIC: Appropriate mood and affect. Insight and judgment normal. Results Procedures completed during hospitalization: NONE Completed studies during hospitalization: Laboratory Results WBC 5.1 th/mm3 (4.0-11.0) 11/18/17 05:37 RBC 4.82 mil/mm3 (4.50-5.90) 11/18/17 05:37 Hgb 15.9 gm/dL (13.0-17.0) 11/18/17 05:37 Hct 47.5 % (39.0-51.0) 11/18/17 05:37 MCV 98.6 fL (80.0-100.0) 11/18/17 05:37 MCH 33.1 pg (27.0-34.0) 11/18/17 05:37 MCHC 33.5 % (32.0-36.0) 11/18/17 05:37 RDW 13.7 % (11.6-17.2) 11/18/17 05:37 Plt Count 210 th/mm3 (150-450) 11/18/17 05:37 MPV 9.2 fL (7.0-11.0) 11/18/17 05:37 Neut % (Auto) 64.5 % (16.0-70.0) 11/18/17 05:37 Lymph % (Auto) 20.6 % (9.0-44.0) 11/18/17 05:37 [place] % (Auto) 13.5 % (0.0-8.0) H 11/18/17 05:37 Eos % (Auto) 0.9 % (0.0-4.0) 11/18/17 05:37 Baso % (Auto) 0.5 % (0.0-2.0) 11/18/17 05:37 Neut # (Auto) 3.3 th/mm3 (1.8-7.7) 11/18/17 05:37 Lymph # (Auto) 1.0 th/mm3 (1.0-4.8) 11/18/17 05:37 [place] # (Auto) 0.7 th/mm3 (0.0-0.9) 11/18/17 05:37 Eos # (Auto) 0.0 th/mm3 (0.0-0.4) 11/18/17 05:37 Baso # (Auto) 0.0 th/mm3 (0.0-0.2) 11/18/17 05:37 WBC Differential . 11/18/17 05:37 Differential Comment Auto diff final 11/18/17 05:37 Puncture Site Right radial 11/17/17 01:06 Patient Temperature 98.6 11/17/17 01:06 O2 Saturation 90 % (90-100) 11/17/17 01:06 ABG pH 7.32 (7.380-7.420) L 11/17/17 01:06 ABG pCO2 28 mmHg (38-42) L 11/17/17 01:06 ABG pO2 82 mmHg (61-120) 11/17/17 01:06 ABG HCO3 14 mmol/L (22-26) L* 11/17/17 01:06 ABG O2 Content 17.6 Vol % (12.0-20.0) 11/17/17 01:06 ABG Base Excess -11.0 mmol/L (-2-2) L 11/17/17 01:06 ABG Methemoglobin 1.2 % (0-2) 11/17/17 01:06 Marcio Test Present 11/17/17 01:06 Hemoglobin 13.9 G/DL (12.0-16.0) 11/17/17 01:06 Carboxyhemoglobin 2.3 % (0-4) 11/17/17 01:06 Critical Value Yes 11/17/17 01:06 Sodium 132 meq/L (136-145) L 11/18/17 05:37 Potassium 5.0 meq/L (3.5-5.1) 11/18/17 05:37 Chloride 103 meq/L (98-107) 11/18/17 05:37 Carbon Dioxide 10.1 meq/L (21.0-32.0) L 11/18/17 05:37 Anion Gap 19 meq/L (5-15) H 11/18/17 05:37 BUN 13 mg/dL (7-18) 11/18/17 05:37 Creatinine 1.17 mg/dL (0.60-1.30) 11/18/17 05:37 Estimated GFR 71 mL/min (>89) L 11/18/17 05:37 POC Glucose 201 mg/dl (68-110) H 11/18/17 11:14 Random Glucose 297 mg/dL (74-106) H 11/18/17 05:37 Hemoglobin A1c 12.9 % (4.3-6.0) H 11/17/17 07:19 Lactic Acid 1.0 mmol/L (0.4-2.0) 11/16/17 23:05 Calcium 7.9 mg/dL (8.5-10.1) L D 11/18/17 05:37 Prot Corrected Calcium 7.6 mg/dL (8.5-10.1) L 11/17/17 07:19 Phosphorus 1.9 mg/dL (2.5-4.9) L 11/18/17 05:37 Magnesium 1.7 mg/dL (1.5-2.5) 11/18/17 05:37 Total Bilirubin 0.4 mg/dL (0.2-1.0) 11/18/17 05:37 AST 16 U/L (15-37) 11/18/17 05:37 ALT 26 U/L (12-78) 11/18/17 05:37 Alkaline Phosphatase 93 U/L (45-117) 11/18/17 05:37 Total Protein 6.3 g/dL (6.4-8.2) L D 11/18/17 05:37 Albumin 3.0 g/dL (3.4-5.0) L 11/18/17 05:37 Beta-Hydroxybutyric Acd 5.32 mmol/L (0.00-0.39) H 11/16/17 22:40 TSH 0.445 uIU/mL (0.358-3.740) 11/18/17 05:37 Free T4 1.01 ng/dL (0.76-1.46) 11/18/17 05:37 Urine Color Yellow (Yellw/Straw) 11/16/17 22:45 Urine Clarity Clear (Clear) 11/16/17 22:45 Urine pH 5.0 (5.0-8.5) 11/16/17 22:45 Ur Specific [place] 1.029 (1.002-1.035) 11/16/17 22:45 Urine Protein Negative mg/dL (Neg-Trace) 11/16/17 22:45 Urine Glucose (UA) 500 or greater mg/dL (Negative) 11/16/17 22:45 Urine Ketones 80 or greater mg/dL (Negative) H 11/16/17 22:45 Urine Occult Blood Negative (Negative) 11/16/17 22:45 Urine Nitrate Negative (Negative) 11/16/17 22:45 Urine Bilirubin Negative (Negative) 11/16/17 22:45 Urine Urobilinogen Less than 2 mg/dL (Less than 2) 11/16/17 22:45 Ur Leukocyte Esterase Negative (Negative) 11/16/17 22:45 Urine RBC Less than 1 /hpf (0-3) 11/16/17 22:45 Urine WBC 1 /hpf (0-5) 11/16/17 22:45 Micro UA Comment Culture not ind 11/16/17 22:45 Ur Microscopic Review Not Reportable 11/16/17 22:45 Urine Culture Comments Culture not ind 11/16/17 22:45 Urine Opiates Screen Neg (Neg) 11/16/17 22:45 Ur Barbiturates Screen Neg (Neg) 11/16/17 22:45 Ur Amphetamines Screen Neg (Neg) 11/16/17 22:45 U Benzodiazepines Scrn Neg (Neg) 11/16/17 22:45 Urine Cocaine Screen Neg (Neg) 11/16/17 22:45 U Cannabinoids Screen Neg (Neg) 11/16/17 22:45 Impressions Chest X-Ray 11/16/17 22:38 CONCLUSION: Normal one view chest x-ray. Labs on day of discharge: Labs from last 24 hours 11/18/17 11/18/17 11/18/17 11:14 07:26 05:37 WBC RBC Hgb Hct MCV MCH MCHC RDW Plt Count MPV Neut % (Auto) Lymph % (Auto) [place] % (Auto) Eos % (Auto) Baso % (Auto) Neut # (Auto) Lymph # (Auto) [place] # (Auto) Eos # (Auto) Baso # (Auto) WBC Differential Differential Comment Sodium 132 L Potassium 5.0 Chloride 103 Carbon Dioxide 10.1 L Anion Gap 19 H BUN 13 Creatinine 1.17 Estimated GFR 71 L POC Glucose 201 H 277 H Random Glucose 297 H Calcium 7.9 L D Phosphorus 1.9 L Magnesium 1.7 Total Bilirubin 0.4 AST 16 ALT 26 Alkaline Phosphatase 93 Total Protein 6.3 L D Albumin 3.0 L TSH 0.445 Free T4 1.01 11/18/17 11/17/17 11/17/17 05:37 20:33 16:35 WBC 5.1 RBC 4.82 Hgb 15.9 Hct 47.5 MCV 98.6 MCH 33.1 MCHC 33.5 RDW 13.7 Plt Count 210 MPV 9.2 Neut % (Auto) 64.5 Lymph % (Auto) 20.6 [place] % (Auto) 13.5 H Eos % (Auto) 0.9 Baso % (Auto) 0.5 Neut # (Auto) 3.3 Lymph # (Auto) 1.0 [place] # (Auto) 0.7 Eos # (Auto) 0.0 Baso # (Auto) 0.0 WBC Differential . Differential Comment Auto diff final Sodium Potassium Chloride Carbon Dioxide Anion Gap BUN Creatinine Estimated GFR POC Glucose 198 H 249 H Random Glucose Calcium Phosphorus Magnesium Total Bilirubin AST ALT Alkaline Phosphatase Total Protein Albumin TSH Free T4 Preliminary micro results at discharge 11/16/17 22:40 Aerobic Blood Culture - Preliminary Blood - Peripheral No growth in 2 days Anaerobic Blood Culture - Preliminary No growth in 2 days 11/16/17 22:45 Aerobic Blood Culture - Preliminary Blood - Peripheral No growth in 2 days Anaerobic Blood Culture - Preliminary No growth in 2 days - Impressions ITS Impressions Chest X-Ray 11/16/17 22:38 CONCLUSION: Normal one view chest x-ray. Discharge Plan - Discharge Disposition Patient Disposition: 01 Discharge Home - Discharge Condition Condition: Good - Discharge Order Discharge Orders: Discharge Order (Routine); Ordered 11/18/17 Ordered By: Demetrius Ying - Discharge Details Anticipated Discharge Date: 11/18/17 Discharge Comment: DC TO HOME - Physicians Team Primary Care Provider: [facility]ician 's Attending Provider: Demetrius Ying
[2017-11-18 14:23] VITALS: BP 93/57; PULSE 89; TEMP 97.6; O2SAT 96
== END 2017-11-18 15:04 | disposition home or self-care (01) ==
LOC: NEPE 22:08 → NEDA 11-17 01:32 → N06 11-17 03:38
PROVIDERS: ADMIT Hospitalist; ATTEND Hospitalist